=== PATIENT | male | born 1935 | race African-American/Black ===

== ENCOUNTER → 2020-12-11 09:37 | Outpatient (BNVA) | payer OTHER, SELFPAY | PROVIDERS: PCP Internal Medicine; Visit Provider Urology ==

== ENCOUNTER 2022-06-12 14:44 | Outpatient (AMB) | payer OTHER, SELFPAY ==
--- NOTE | 2022-06-11 16:23 | MHC.OFFVIS ---
Intake Intake Visit Reasons: 6 month follow up PSA (set) Intake Note: Patient is present for Tele PSA Follow Up Patient has catheter patient states that he manages his own catheter Blood Thinners: not on any Automation Controls Specialist Required: No Accompanied by: Self / Same As Patient Allergies No Known Allergies [No Known Allergies*] Allergy (Verified 06/17/23 09:31) HPI HPI Comments History of Present Illness Details Ry URBINA is a very pleasant male. He is a patient of Dr Waters. He is seen for the following urologic conditions. 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 Incontinence secondary to radiation. 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 On cysto had narrowing of anastomosis - blanched tissue with post radiation changes. No definitive stricture. Will try 14 days of doxycycline 05/08 recent UTI. On examination today urine is clear. Using condom catheter. Uses Vaseline to make sure that glue does not spread on inner thighs. Need to check PSA at next visit. He has a typical symptoms with lower abdominal discomfort when he gets a UTI. 02/06 possible UTI. Tells me it has resolved. No fever. Does have some dysuria. Still wearing [place] catheter changing this every day. 05/09 completed antibiotics for UTI. Cystoscopy showed anastomosis poorly vascular so has partial stricture. 06/09 urine symptoms currently stable. Main issue currently is abdominal discomfort. CT imaging suggests chronic pancreatitis. Has cysts in liver, pancreas, kidneys. These were discussed with patient. Can review in 6 months [facility] Medical History Stress incontinence, male Hyperlipidemia Recurrent UTI Dysuria Genital warts Prostate cancer Urgency incontinence Surgical History History of surgery Review of Systems Const Denies chills and Denies fever(s) Card Reports no additional complaints and Denies syncope Resp Denies cough GI Denies abdominal pain and Denies heartburn Reports as per HPI and Denies change in libido Neuro Denies syncope Psych Denies change in libido Endo Denies change in libido Physical Exam Const General: cooperative, healthy appearing, comfortable and no acute distress Orientation/consciousness: patient oriented x3 HEENT Face and sinus: Yes normal facial exam Mouth: moist mucous membranes Neck Neck: Yes normal visual inspection, Yes full ROM and Yes trachea midline Chest Chest palpation & inspection: normal inspection of the chest Resp Effort & Inspection: normal respiratory effort, able to speak in complete sentences and no respiratory distress GI Inspection: Yes normal to inspection Back/Spine/Pelvis Cervical Spine: normal cervical lordosis Thoracic/Lumbar Spine: thoracic and lumbar spine normal to inspection Skin General skin exam: no rashes or lesions noted Neuro General: patient oriented x3, gait normal, tone normal and moves all extremities Extrem General: Yes normal to inspection and Yes capillary refill normal Assessment & Plan Assessment & Plan (1) Prostate cancer: Code(s): C61 - Malignant neoplasm of prostate (2) Balanitis: Code(s): N48.1 - Balanitis Plan Six-month follow-up Orders: Orders Prostate Specific Antigen 6 Months C61 - Malignant neoplasm of prostate Patient Instructions: Imaging studies, laboratory and physical exam results were discussed and reviewed in detail. No major barriers to patient understanding were identified. An opportunity to ask questions regarding the treatment plan was provided. All questions were answered. The patient expressed understanding and agreement with the above treatment plan. The patient is aware they should contact our office by phone for worsening of their current condition or the appearance of new urologic symptoms. Compliance is encouraged with any medications and followup testing that is ordered. It is a privilege to participate in the urologic care of your patient. If you have any questions or concerns regarding treatment for the above conditions, or other urologic issues, please do not hesitate to contact me. The office telephone contact is [phone]. This note is constructed using voice recognition software. While every effort has been made to ensure accuracy senior controls engineer errors may have been included. Yours sincerely, Dr Anshul Bella MD, [place] [facility] - Urology Providers of Expert, Compassionate Care for the Genitourinary System Coding Level of Care Code Est Pt Level 3 (64357) Diagnoses Prostate cancer C61 Balanitis N48.1
== END 2022-06-12 15:21 | disposition home or self-care (01) ==
LOC: HO.HUSH 14:44
PROVIDERS: Visit Provider Urology
DX: C61 Malignant neoplasm of prostate (principal); N48.1 Balanitis
CPT/HCPCS: 99213; 99499

== ENCOUNTER → 2022-12-17 09:28 | Outpatient (BNVA) | payer MEDICARE, SELFPAY | PROVIDERS: Visit Provider Urology | DX: N48.1 Balanitis (principal) | CPT/HCPCS: 99212 ==

== ENCOUNTER 2023-06-17 09:11 | Outpatient (AMB) | payer MEDICARE, SELFPAY ==
--- NOTE | 2023-06-17 09:13 | MHC.OFFVIS ---
Intake Intake Visit Reasons: 6m follow up Intake Note: Patient is present for Follow up Urology Medications: None Antibiotic Allergy: None Blood Thinner: none Health Lead Required: No Accompanied by: Self / Same As Patient Allergies No Known Allergies [No Known Allergies*] Allergy (Verified 06/17/23 09:31) HPI HPI Comments History of Present Illness Details Ry URBINA is a very pleasant male. He is a patient of Dr Waters. He is seen for the following urologic conditions. 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 Incontinence secondary to radiation. 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 On cysto had narrowing of anastomosis - blanched tissue with post radiation changes. No definitive stricture. Will try 14 days of doxycycline 05/08 recent UTI. On examination today urine is clear. Using condom catheter. Uses Vaseline to make sure that glue does not spread on inner thighs. Need to check PSA at next visit. He has a typical symptoms with lower abdominal discomfort when he gets a UTI. 02/06 possible UTI. Tells me it has resolved. No fever. Does have some dysuria. Still wearing [place] catheter changing this every day. 05/09 completed antibiotics for UTI. Cystoscopy showed anastomosis poorly vascular so has partial stricture. 06/09 urine symptoms currently stable. Main issue currently is abdominal discomfort. CT imaging suggests chronic pancreatitis. Has cysts in liver, pancreas, kidneys. These were discussed with patient. Can review in 6 months [facility] Medical History Stress incontinence, male Hyperlipidemia Recurrent UTI Dysuria Genital warts Prostate cancer Urgency incontinence Surgical History History of surgery Review of Systems Const Denies chills and Denies fever(s) Card Reports no additional complaints and Denies syncope Resp Denies cough GI Denies abdominal pain and Denies heartburn Reports as per HPI and Denies change in libido Neuro Denies syncope Psych Denies change in libido Endo Denies change in libido Physical Exam Const General: cooperative, healthy appearing, comfortable and no acute distress Orientation/consciousness: patient oriented x3 HEENT Face and sinus: Yes normal facial exam Mouth: moist mucous membranes Neck Neck: Yes normal visual inspection, Yes full ROM and Yes trachea midline Chest Chest palpation & inspection: normal inspection of the chest Resp Effort & Inspection: normal respiratory effort, able to speak in complete sentences and no respiratory distress GI Inspection: Yes normal to inspection Back/Spine/Pelvis Cervical Spine: normal cervical lordosis Thoracic/Lumbar Spine: thoracic and lumbar spine normal to inspection Skin General skin exam: no rashes or lesions noted Neuro General: patient oriented x3, gait normal, tone normal and moves all extremities Extrem General: Yes normal to inspection and Yes capillary refill normal Assessment & Plan Assessment & Plan (1) Urgency incontinence: Code(s): N39.41 - Urge incontinence (2) Prostate cancer: Code(s): C61 - Malignant neoplasm of prostate Plan Urinary incontinence Stabilizes with condom cath Patient Instructions: Imaging studies, laboratory and physical exam results were discussed and reviewed in detail. No major barriers to patient understanding were identified. An opportunity to ask questions regarding the treatment plan was provided. All questions were answered. The patient expressed understanding and agreement with the above treatment plan. The patient is aware they should contact our office by phone for worsening of their current condition or the appearance of new urologic symptoms. Compliance is encouraged with any medications and followup testing that is ordered. It is a privilege to participate in the urologic care of your patient. If you have any questions or concerns regarding treatment for the above conditions, or other urologic issues, please do not hesitate to contact me. The office telephone contact is [phone]. This note is constructed using voice recognition software. While every effort has been made to ensure accuracy day trader errors may have been included. Yours sincerely, Dr Anshul Bella MD, [place] [facility] - Urology Providers of Expert, Compassionate Care for the Genitourinary System Coding Level of Care Code Est Pt Level 3 (51517) Diagnoses Urgency incontinence N39.41 Prostate cancer C61
== END 2023-06-17 09:55 | disposition home or self-care (01) ==
PROVIDERS: Visit Provider Urology
DX: N39.41 Urge incontinence (principal); C61 Malignant neoplasm of prostate
CPT/HCPCS: 99213

== ENCOUNTER → 2023-06-17 09:11 | Outpatient (BNVA) | payer MEDICARE, SELFPAY | PROVIDERS: Visit Provider Urology | DX: N39.41 Urge incontinence (principal); C61 Malignant neoplasm of prostate | CPT/HCPCS: 99212 ==

== ENCOUNTER 2023-11-30 10:45 | Outpatient (AMB) | payer MEDICARE, SELFPAY ==
--- NOTE | 2023-11-30 10:54 | A.OFFVIS_ITS ---
Intake Intake Visit Reasons: 6M PVR (Confirmed) Intake Note: Patient presents today for a 6 month follow-up/PVR Meds- None Allergies to Antibiotic- No Known Allergies Blood Thinner- None Post Void Residual: 0ml Hand Candle Molder Required: No Accompanied by: Self / Same As Patient Allergies No Known Allergies [No Known Allergies*] Allergy (Verified 11/30/23 11:05) Medication List - Last Reconciled 11/30/23 by Anshul Bella MD amlodipine 5 mg PO DAILY drainage bag As directed urinary bag (Urinary Leg Bag) As directed HPI HPI Comments History of Present Illness Details Ry URBINA is a very pleasant male. He is a patient of Dr Waters. He is seen for the following urologic conditions. - prostate cancer - urinary incontinence secondary to radi deirdre prostatectomy with external beam radiation for rising PSA Doing well Check PSA in 6 months Has irritation from condom catheter Did discuss using dribble clamp Said they were considering dialysis. Discussion at 89 would consider maybe peritoneal dialysis but hemodialysis is likely to be physically taxing. 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 Incontinence secondary to radiation. 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 On cysto had narrowing of anastomosis - blanched tissue with post radiation changes. No definitive stricture. Will try 14 days of doxycycline 05/08 recent UTI. On examination today urine is clear. Using condom catheter. Uses Vaseline to make sure that glue does not spread on inner thighs. Need to check PSA at next visit. He has a typical symptoms with lower abdominal discomfort when he gets a UTI. 02/06 possible UTI. Tells me it has resolved. No fever. Does have some dysuria. Still wearing [place] catheter changing this every day. 05/09 completed antibiotics for UTI. Cystoscopy showed anastomosis poorly vascular so has partial stricture. 06/09 urine symptoms currently stable. Main issue currently is abdominal discomfort. CT imaging suggests chronic pancreatitis. Has cysts in liver, pancreas, kidneys. These were discussed with patient. Can review in 6 months [facility] Medical History (Updated 11/30/23 @ 11:27 by Anshul Bella MD) Stress incontinence, male Hyperlipidemia Recurrent UTI Dysuria Genital warts Prostate cancer Urgency incontinence Surgical History History of surgery Review of Systems Const Denies chills and Denies fever(s) Card Reports no additional complaints and Denies syncope Resp Denies cough GI Denies abdominal pain and Denies heartburn Reports as per HPI and Denies change in libido Neuro Denies syncope Psych Denies change in libido Endo Denies change in libido Physical Exam Const General: cooperative, healthy appearing, comfortable and no acute distress Orientation/consciousness: patient oriented x3 HEENT Face and sinus: Yes normal facial exam Mouth: moist mucous membranes Neck Neck: Yes normal visual inspection, Yes full ROM and Yes trachea midline Chest Chest palpation & inspection: normal inspection of the chest Resp Effort & Inspection: normal respiratory effort, able to speak in complete sentences and no respiratory distress GI Inspection: Yes normal to inspection Back/Spine/Pelvis Cervical Spine: normal cervical lordosis Thoracic/Lumbar Spine: thoracic and lumbar spine normal to inspection Skin General skin exam: no rashes or lesions noted Neuro General: patient oriented x3, gait normal, tone normal and moves all extremities Extrem General: Yes normal to inspection and Yes capillary refill normal Office Procedures Post Void Residual Post Residual Void Post Void Residual (PVR): 0 [id number]-[id number] Void Residual by ultrasound Assessment & Plan Assessment & Plan (1) Prostate cancer: Code(s): C61 - Malignant neoplasm of prostate (2) Stress incontinence, male: Code(s): N39.3 - Stress incontinence (female) (male) Plan Six-month PSA Orders: Orders Prostate Specific Antigen 11/17/23 C61 - Malignant neoplasm of prostate AMB Post Void Residual by ultrasound Today R33.9 - Retention of urine, unspecified Prostate Specific Antigen 6 Months C61 - Malignant neoplasm of prostate Patient Instructions: Imaging studies, laboratory and physical exam results were discussed and reviewed in detail. No major barriers to patient understanding were identified. An opportunity to ask questions regarding the treatment plan was provided. All questions were answered. The patient expressed understanding and agreement with the above treatment plan. The patient is aware they should contact our office by phone for worsening of their current condition or the appearance of new urologic symptoms. Compliance is encouraged with any medications and followup testing that is ordered. It is a privilege to participate in the urologic care of your patient. If you have any questions or concerns regarding treatment for the above conditions, or other urologic issues, please do not hesitate to contact me. The office telephone contact is [phone]. This note is constructed using voice recognition software. While every effort has been made to ensure accuracy door liner helper errors may have been included. Yours sincerely, Dr Anshul Bella MD, [place] [facility] - Urology Providers of Expert, Compassionate Care for the Genitourinary System Coding Level of Care Code Est Pt Level 3 (43889) Diagnoses Prostate cancer C61 Stress incontinence, male N39.3 CPT Codes Post Residual Void - PVR CPT Code: 68768-Xijx Void Residual by ultrasound ([id number])
== END 2023-11-30 11:26 | disposition home or self-care (01) ==
LOC: HO.HUSH 10:46
PROVIDERS: Visit Provider Urology
DX: C61 Malignant neoplasm of prostate (principal); N39.3 Stress incontinence (female) (male)
CPT/HCPCS: 99213

== ENCOUNTER → 2023-11-30 10:45 | Outpatient (BNVA) | payer MEDICARE, SELFPAY | PROVIDERS: Visit Provider Urology | DX: C61 Malignant neoplasm of prostate (principal); N39.3 Stress incontinence (female) (male) | CPT/HCPCS: 51798; 99212 ==

== ENCOUNTER → 2024-01-21 09:05 | Outpatient (BNVA) | payer MEDICARE, SELFPAY | PROVIDERS: Visit Provider Urology | DX: N39.3 Stress incontinence (female) (male) (principal) | CPT/HCPCS: 51702 ==

== ENCOUNTER → 2024-02-01 13:37 | Outpatient (BNVA) | payer MEDICARE, SELFPAY | PROVIDERS: Visit Provider Urology ==

== ENCOUNTER 2024-06-01 10:39 | Outpatient (AMB) | payer MEDICARE, SELFPAY ==
--- NOTE | 2024-06-01 10:47 | A.OFFVIS_ITS ---
Intake Visit Reasons: Concerning Rash Intake Note: Patient is present for Concerning recurrent Groin Rash. Patient states that he has had this issue for a while and symptoms has returned. Currently patient has not done his Current PSA but [facility] Order has been given to patient Urology Med: Oxybutynin Supervisor Drawing Required: No Accompanied by: Self / Same As Patient Allergies No Known Allergies [No Known Allergies*] Allergy (Verified 06/01/24 11:00) HPI Comments Details: Ry URBINA is a very pleasant male. He is a patient of Dr Waters. He is seen for the following urologic conditions. 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 Incontinence secondary to radiation. 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 On cysto had narrowing of anastomosis - blanched tissue with post radiation changes. No definitive stricture. Will try 14 days of doxycycline 05/08 recent UTI. On examination today urine is clear. Using condom catheter. Uses Vaseline to make sure that glue does not spread on inner thighs. Need to check PSA at next visit. He has a typical symptoms with lower abdominal discomfort when he gets a UTI. 02/06 possible UTI. Tells me it has resolved. No fever. Does have some dysuria. Still wearing [place] catheter changing this every day. 05/09 completed antibiotics for UTI. Cystoscopy showed anastomosis poorly vascular so has partial stricture. 06/09 urine symptoms currently stable. Main issue currently is abdominal discomfort. CT imaging suggests chronic pancreatitis. Has cysts in liver, pancreas, kidneys. These were discussed with patient. Can review in 6 months [facility] Medical History Stress incontinence, male Hyperlipidemia Recurrent UTI Dysuria Genital warts Prostate cancer Urgency incontinence Surgical History History of surgery Review of Systems Const Denies chills and Denies fever(s) Card Reports no additional complaints and Denies syncope Resp Denies cough GI Denies abdominal pain and Denies heartburn Reports as per HPI and Denies change in libido Neuro Denies syncope Psych Denies change in libido Endo Denies change in libido Physical Exam Const General: cooperative, healthy appearing, comfortable and no acute distress Orientation/consciousness: patient oriented x3 HEENT Face and sinus: Yes normal facial exam Mouth: moist mucous membranes Neck Neck: Yes normal visual inspection, Yes full ROM and Yes trachea midline Chest Chest palpation & inspection: normal inspection of the chest Resp Effort & Inspection: normal respiratory effort, able to speak in complete sentences and no respiratory distress GI Inspection: Yes normal to inspection Back/Spine/Pelvis Cervical Spine: normal cervical lordosis Thoracic/Lumbar Spine: thoracic and lumbar spine normal to inspection Skin General skin exam: no rashes or lesions noted Neuro General: patient oriented x3, gait normal, tone normal and moves all extremities Extrem General: Yes normal to inspection and Yes capillary refill normal Assessment & Plan Assessment & Plan (1) Prostate cancer: Code(s): C61 - Malignant neoplasm of prostate Category: Medical (2) Stress incontinence, male: Code(s): N39.3 - Stress incontinence (female) (male) Category: Medical (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 These include but are not limited to infection, bleeding, damage to local organs and tissues, need for further interventions. Anesthetic risks regarding cardiac arrhythmia, blood clots, and potential mortality were discussed. The patient understands the typical recovery time and the outpatient nature of the procedure. After consideration of these risks the patient gives full informed consent and they wish to move ahead with the procedure. Circumcision Patient Instructions: Imaging studies, laboratory and physical exam results were discussed and reviewed in detail. No major barriers to patient understanding were identified. An opportunity to ask questions regarding the treatment plan was provided. All questions were answered. The patient expressed understanding and agreement with the above treatment plan. The patient is aware they should contact our office by phone for worsening of their current condition or the appearance of new urologic symptoms. Compliance is encouraged with any medications and followup testing that is ordered. It is a privilege to participate in the urologic care of your patient. If you have any questions or concerns regarding treatment for the above conditions, or other urologic issues, please do not hesitate to contact me. The office telephone contact is [phone]. This note is constructed using voice recognition software. While every effort has been made to ensure accuracy painting department supervisor errors may have been included. Yours sincerely, Dr Anshul Bella MD, [place] [facility] - Urology Providers of Expert, Compassionate Care for the Genitourinary System Coding Level of Care Code Est Pt Level 4 (37903) Diagnoses Prostate cancer C61 Stress incontinence, male N39.3 Lichen sclerosus of penis N48.0
== END 2024-06-01 11:16 | disposition home or self-care (01) ==
PROVIDERS: Visit Provider Urology
DX: C61 Malignant neoplasm of prostate (principal); N39.3 Stress incontinence (female) (male); N48.0 Leukoplakia of penis
CPT/HCPCS: 99214

== ENCOUNTER → 2024-06-01 10:39 | Outpatient (BNVA) | payer MEDICARE, SELFPAY | PROVIDERS: Visit Provider Urology | DX: N39.3 Stress incontinence (female) (male) (principal); N48.0 Leukoplakia of penis; C61 Malignant neoplasm of prostate | CPT/HCPCS: 99212 ==

== ENCOUNTER → 2024-06-20 10:06 | Day surgery (SDC) | payer MEDICARE, SELFPAY ==
--- NOTE | 2024-06-19 12:48 | HO.ANESPROP2 ---
HPI - Anesthesia Eval Consult details Narrative: 89yo M for Circumcision Hx PAF, no OAC 2/2 anemia. Bilat LE edema - follows [facility] no [facility] recent labs, EKG - will obtain DOS PMFSH Active Problems Active Problems: All Active Problems Lichen sclerosus of penis (Acute) Balanitis (Acute) Stress incontinence, male (Acute) Urgency incontinence (Acute) Prostate cancer (Acute) Past Medical History Medical History (Updated 06/16/24 @ 12:11 by Yudith Stacy RN) Neuralgia Microalbuminuria Osteoarthritis HTN (hypertension) Back pain Hx of testicular cancer Obesity Vitamin D deficiency Mixed hyperlipidemia Sensorineural hearing loss Solitary lung nodule Lesion of liver IBS (irritable bowel syndrome) Rib fractures Gynecomastia Sleep apnea Chronic pancreatitis Anemia Atrial fibrillation Stress incontinence, male Hyperlipidemia Recurrent UTI Dysuria Genital warts Prostate cancer Urgency incontinence Surgical History Surgical History (Updated 06/16/24 @ 12:11 by Yudith Stacy RN) H/O colonoscopy History of orchiectomy Hx of radical prostatectomy History of surgery Meds Allergies Allergy/AdvReac Type Severity Reaction Status Date / Time No Known Allergies Allergy Verified 06/01/24 11:00 [No Known Allergies*] Home Medications ?Medication ?Instructions ?Recorded ?Confirmed ?Last Taken ?Type amlodipine 10 mg tablet 10 mg PO DAILY 06/16/24 06/16/24 Unknown History aspirin 81 mg tablet,delayed 81 mg PO DAILY 06/16/24 06/16/24 Unknown History release calcitriol 0.25 mcg capsule 0.25 mcg PO DAILY 06/16/24 06/16/24 Unknown History metoprolol tartrate 25 mg tablet 25 mg PO BID 06/16/24 06/16/24 Unknown History sodium bicarbonate 650 mg tablet 650 mg PO BID 06/16/24 06/16/24 Unknown History Exam Height,Weight and Vital Signs: Weight 92.986 kg Assessment and Plan Assessment Anesthesia Assessment: Chart Reviewed
--- NOTE | 2024-06-20 10:35 | ECG_ITS ---
Test Reason : PREOP Blood Pressure : / mmHG Vent. Rate : 065 BPM Atrial Rate : 065 BPM P-R Int : 158 ms QRS Dur : 088 ms QT Int : 394 ms P-R-T Axes : 052 006 081 degrees QTc Int : 409 ms Sinus rhythm with Premature atrial complexes Otherwise normal ECG No previous ECGs available Referred By: Georgia Dumont Electronically Signed By:STACEY DENNIS
[2024-06-20] MEDS: Lactated Ringers 1,000 ML 100 ML IVCONT (11:12)
[2024-06-20 11:24] LABS: Hematocrit 23.9 % (42.0-52.0); Hemoglobin 7.4 g/dl (14.0-18.0); Mean Corpuscular Hemoglobin 34.9 pg (27.0-33.0); Mean Corpuscular Volume 112.7 fL (80.0-98.0); Mean Platelet Volume 10.4 fL (9.4-12.4); Platelet Count 205 X10*3/uL (160-400); Red Blood Count 2.12 X10*6/uL (4.60-5.80); Red Cell Distribution Width 14.6 % (11.0-16.0); White Blood Count 4.7 X10*3/uL (4.8-10.8)
[2024-06-20 11:36] VITALS: BP 138/87; PULSE 69; RESP 18; TEMP 36.7; O2SAT 100
[2024-06-20 11:36] LABS: Anion Gap 12 (12-20); Blood Urea Nitrogen 36 mg/dL (9-16); Calcium 8.3 mg/dL (8.4-10.2); Carbon Dioxide 12 mmol/L (22-29); Chloride 121 mmol/L (96-108); Estimated Glomerular Filt Rate 12; Glucose Fasting 97 mg/dL (60-99); Potassium 6.6 mmol/L (3.3-5.1); Sodium 138 mmol/L (135-145)
[2024-06-20 11:39] VITALS: BMI 29.6
--- NOTE | 2024-06-20 12:22 | PC.NURSE ---
Dr. Romero and Dr. Tariq reviewed labs and decision was made that patient was to be brought to ER. Report given to Angella Ugalde RN. Doctor met patient in room when arrived. Dr. Tariq is calling patient's daughter.
--- NOTE | 2024-06-20 12:36 | MHC.SHP ---
Pre-Procedural Eval Section A - 24 Hr Update-Section A only Date of Service: 06/20/24 The patient is an INPATIENT: No The patient has been examined within 24 hours of the surgical procedure. The History & Physical has been completed within 30 days and I have reviewed it.: Yes Section B - Complete if H&P > 30 days Chief Complaint: Leukoplakia of penis Allergies: Allergies Allergy/AdvReac Type Severity Reaction Status Date / Time No Known Allergies Allergy Verified 06/20/24 12:23 [No Known Allergies*] Plan Diagnosis/Plan: Change I have reviewed the history and physical and performed a pertinent physical examination on my patient. No changes have occurred unless specified. Labs drawn in pre-op --K+-6.6, creatinine elevated. Procedure. Cancelled. The patient will be sent to ED for further evaluation. The patient's daughter Ceferino was informed. Time Spent With Patient Time: Total time managing care of this patient today ____ minutes.
[2024-06-20 12:57] LABS: Alanine Aminotransferase 17 U/L (0-40); Albumin Level 3.6 g/dL (3.5-5.0); Alkaline Phosphatase 128 U/L (39-117); Aspartate Amino Transferase 14 U/L (5-37); Bilirubin Direct 0.1 mg/dL (0.0-0.5); Bilirubin Total 0.3 mg/dL (0.0-1.0); Lipase 15 U/L (8-78); Total Protein 6.4 g/dL (6.5-8.0)
== END ==
PROVIDERS: Nurse Practitioner; Visit Provider Urology
DX: N48.0 Leukoplakia of penis (principal); Z53.8 Procedure and treatment not carried out for other reasons
CPT/HCPCS: 36415; 80048; 80076; 83690; 85027; 93005; J0690

== ENCOUNTER 2024-06-20 12:17 | Inpatient (IN) | payer OTHER, MEDICARE, SELFPAY ==
--- NOTE | ~2024-06-20 | XR_ITS ---
EXAMINATION: XR CHEST CLINICAL INFORMATION: Acute kidney injury COMPARISON: None available. TECHNIQUE: Frontal view of the chest was obtained. FINDINGS: The left hemidiaphragm is elevated. Heart size normal allowing for technique. No infiltrates, XR/XR chest 1V IMPRESSION: No acute intrathoracic disease. Electronically signed by: Ziggy White MD 06/20/2024 03:14 PM EDT RP
--- NOTE | ~2024-06-20 | CT_ITS ---
EXAMINATION: CT ABDOMEN AND PELVIS WITHOUT CONTRAST CLINICAL INFORMATION: Left hip pain with question of obstructive uropathy COMPARISON: CT abdomen pelvis 05/07/2020 TECHNIQUE: Multidetector volumetric imaging was performed from the superior aspect of the liver through the pubic symphysis. Sagittal and coronal reformatted images were obtained on the technologist's workstation. This CT examination was performed using dose optimization techniques as appropriate, variously including the following: *Automated exposure control *Adjustment of mA and/or kV according to patient size (this includes techniques or standardized protocols for targeted exams where dose is matched to indication/reason for exam; i.e. extremities or head) *Use of iterative reconstruction technique DLP: 626 mGy-cm FINDINGS: LUNG BASES: Left hemidiaphragm is mildly elevated with some left basilar scarring. Some mild traction bronchiectasis is seen at the right lung base. No consolidations, effusions or suspicious masses. LIVER, GALLBLADDER, AND BILIARY TREE: The liver is small in size with normal shape and attenuation. Innumerable hepatic cysts are present. No focal hepatic lesion or biliary ductal dilatation is present. The gallbladder is contracted but otherwise unremarkable with no evidence of radiopaque gallstones, gallbladder wall thickening, or obvious pericholecystic inflammatory changes. PANCREAS: Chronic calcifications are seen throughout the pancreas with large confluent areas of calcification in the pancreatic head. No inflammatory changes are seen around the pancreas to suggest acute pancreatitis. SPLEEN: Unremarkable. ADRENAL GLANDS: Mild left adrenal thickening. No discrete adrenal masses KIDNEYS AND URETERS: The kidneys are small, the right smaller than the left. Bilateral benign Bosniak class I renal cysts are noted which require no additional imaging or follow-up. No solid renal masses are seen. There is no nephrolithiasis. No hydronephrosis. BLADDER: A Valentine catheter is present in the bladder which is decompressed. GASTROINTESTINAL TRACT: The small and large bowel are unremarkable. The appendix is unremarkable. ABDOMINAL WALL: No significant hernia is appreciated. LYMPH NODES: No retroperitoneal lymphadenopathy. VASCULAR: Calcific atherosclerotic changes are present in the aorta and iliofemoral vessels. There is no evidence of an abdominal aortic aneurysm. PELVIC VISCERA: Prostate and seminal vesicles not seen. Please correlate with any surgical history OSSEOUS STRUCTURES: Marked degenerative changes are present in the hips. Moderate degenerative changes are present in the spine. Minimal grade 1 anterolisthesis of L4 upon L5 CT/CT abdomen pelvis wo IV con IMPRESSION: 1. Severe arthritic changes are present in the hips, left greater than right. This could certainly be a cause of left hip pain. 2. Innumerable benign hepatic cysts. 3. Chronic calcifications in the pancreas. 4. Small kidneys with benign Bosniak class I renal cysts which need no additional imaging or follow-up. 5. Other incidental findings as described above. Fleischner guidelines were followed. Electronically signed by: Ziggy White MD 06/20/2024 04:19 PM EDT
[2024-06-20 12:22] VITALS: BP 161/80; PULSE 69; RESP 18; TEMP 36.8; O2SAT 99; BMI 31.0
--- NOTE | 2024-06-20 12:27 | ECG_ITS ---
Test Reason : hyperkalemia Blood Pressure : / mmHG Vent. Rate : 068 BPM Atrial Rate : 068 BPM P-R Int : 178 ms QRS Dur : 078 ms QT Int : 386 ms P-R-T Axes : 063 002 076 degrees QTc Int : 410 ms Sinus rhythm with Premature atrial complexes Low voltage QRS Borderline ECG When compared with ECG of 20-JUN-2024 10:49, No significant change was found Referred By: Rey Dumont Electronically Signed By:STACEY DENNIS
--- NOTE | 2024-06-20 12:28 | ED_ITS ---
HPI - General Adult General Chief complaint: Recheck/Abnormal Lab/Rx Stated complaint: abnormal labs Time Seen by Provider: 06/20/24 12:23 Source: patient Mode of arrival: ambulatory Limitations: no limitations History of Present Illness ED Provider: DR. Dumont HPI narrative: Mr. 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 Patient otherwise complaining of feeling generalized weakness but no specific symptoms stated by the patient today, stated that he use diaper at home in he is urinating normally. no abdominal pain or suprapubic distention. Related Data Home Medications ?Medication ?Instructions ?Recorded ?Confirmed amlodipine 10 mg tablet 10 mg PO DAILY 06/16/24 06/16/24 aspirin 81 mg tablet,delayed 81 mg PO DAILY 06/16/24 06/16/24 release calcitriol 0.25 mcg capsule 0.25 mcg PO DAILY 06/16/24 06/16/24 metoprolol tartrate 25 mg tablet 25 mg PO BID 06/16/24 06/16/24 sodium bicarbonate 650 mg tablet 650 mg PO BID 06/16/24 06/16/24 Previous Rx's ?Medication ?Instructions ?Recorded drainage bag #1 ea 03/09/23 urinary bag (Urinary Leg Bag) #2 ea 03/09/23 phenazopyridine 100 mg tablet 100 mg PO TID PRN pain 3 days #9 01/21/24 (Pyridium) tabs oxybutynin chloride 5 mg tablet 5 mg PO DAILY bladder spasms 30 01/25/24 days #30 tabs Allergies Allergy/AdvReac Type Severity Reaction Status Date / Time No Known Allergies Allergy Verified 06/20/24 12:23 [No Known Allergies*] Review of Systems Review of Systems: All other systems are reviewed and are negative Constitutional: Reports as per HPI and Reports no additional constitutional complaints Eyes: Reports as per HPI and Reports no additional eye complaints Reports system reviewed and no additional complaints, except as documented Cardiovascular: Reports as per HPI and Reports no additional cardiovascular complaints Respiratory: Reports as per HPI and Reports no additional respiratory complaints Gastrointestinal: Reports as per HPI and Reports no additional gastrointestinal complaints Genitourinary: Reports no additional female genitourinary complaints Musculoskeletal: Reports no additional musculoskeletal complaints Skin/Breast: Reports system reviewed and no additional complaints, except as docu Psychiatric: Reports no additional psychiatric complaints Endocrine: Reports no additional endocrine complaints Hematologic/Lymphatic: Reports no additional hematologic/lymphatic complaints Allergic/Immunologic: Reports no additional allergic/immunologic complaints Reports system reviewed and no additional complaints, except as documented and Reports Abnormal speech present [facility] Past Medical History Medical History Neuralgia Microalbuminuria Osteoarthritis HTN (hypertension) Back pain Hx of testicular cancer Obesity Vitamin D deficiency Mixed hyperlipidemia Sensorineural hearing loss Solitary lung nodule Lesion of liver IBS (irritable bowel syndrome) Rib fractures Gynecomastia Sleep apnea Chronic pancreatitis Anemia Atrial fibrillation Stress incontinence, male Hyperlipidemia Recurrent UTI Dysuria Genital warts Prostate cancer Urgency incontinence Surgical History H/O colonoscopy History of orchiectomy Hx of radical prostatectomy History of surgery Social History Social History Advance Directives: Yes Advance Directives Information Provided: Yes Advance Directives on File: No Do you have a plan to hurt others: No Plan Physical Exam ED Vital Signs: Vital Signs - 24 hr 06/20/24 12:22 Temperature 98.3 F Pulse Rate 69 Respiratory Rate 18 Blood Pressure 161/80 H Pulse Oximetry 99 Oxygen Delivery Method Room Air BMI result Body Mass Index 31.0 Vital signs have been reviewed and appear to be correct. Blood pressure elevated. Heart rate normal. Respiratory rate normal. Temperature normal. Oxygen saturation normal. Appearance: Alert. Oriented X3. No acute distress. Head: Normal external exam. Normocephalic. Atraumatic. No Baeza signs noted. No raccoon eyes noted Eyes: PERRLA. EOMI. Conjunctiva and sclera normal. Eyelids normal. ENT: TM's Normal. Pharynx normal. Uvula midline. Moist mucous membranes. No trismus noted. No drooling noted. No muffled voice noted. Neck: Normal inspection. Neck supple. FROM. No adenopathy. Thyroid Normal. No meningeal signs. No neck mass noted. CVS: Normal heart rate and rhythm. Heart sound normal. No murmurs noted. Pulses normal throughout. Respiratory: No respiratory distress. Painless inspiration. Breath sounds normal. No wheezes/rales/rhonchi noted. Chest nontender. No accessory muscle usage noted or decreased air movement noted. Abdomen: Soft and nontender. Bowel sounds normal in all 4 quadrants. No distention noted. No organomegaly noted. No visible injury noted. Back: No CVA tenderness. Full range of motion noted. Skin: Skin warm and dry. Normal skin color. Normal skin turgor. No rashes/lesions/lacerations noted. Extremities: No lower extremity edema. Extremities exhibit normal range of mot ion. Extremities nontender. Neuro: Oriented X 3. Cranial nerve exam: II-XII are grossly intact No motor deficit. No sensory deficit. Reflexes normal. Course Reevaluation(s) Reevaluation #1: 1. ML, Valentine was placed with 100 cc of clear urine was drained, CT show no acute obstructive uropathy. 2. Admit and get inpatient nephrology consult. 3. Left hip pain CT is revealing severe arthritis left more than right. Time: 16:31 Medications Administered Discontinued Medications Generic Name Dose Route Start Last Admin Trade Name Freq PRN Reason Stop Dose Admin Lidocaine HCl 10 ml 06/20/24 12:51 06/20/24 13:20 Lidocaine Hcl 2 % Urojet 10 Ml Jel.Pf.Gio TOPICAL 06/20/24 12:52 10 ml ONCE ONE Administration Sodium Zirconium Cyclosilicate 10 gm 06/20/24 12:26 06/20/24 12:35 Sodium Zirconium Cyclosilicate 10 Gm Powd.Pack PO 06/20/24 12:27 10 gm ONCE ONE Administration Medical Decision Making Differential Diagnosis Differential Diagnoses: The differential diagnosis associated with the presentation includes ( ML on CKI, severe anemia, electrolyte derangement, hyperkalemia, EKG changes, intra abdominal pathology, obstructive uropathy.) Admission/Observation Consideration of admission/observation: Escalation of care including admission/observation considered Consult Healthcare Provider Management of the patient was discussed with: Hospitalist ( Dr. Larry) Lab Data MDM Lab Attestation statement: I reviewed the patient's lab results. Independent Interpretation I performed an independent interpretation of an: CT Scan ( abdomen pelvis:1. Severe arthritic changes are present in the hips, left greater than right. This could certainly be a cause of left hip pain. 2. Innumerable benign hepatic cysts. 3. Chronic calcifications in the pancreas. 4. Small kidneys with benign Bosniak class I renal cysts which need no ) Radiology Impression Discussion of test interpretation with radiology: I have reviewed the radiologist's reading. Discharge Plan Discharge Clinical Impression: ML (acute kidney injury), Acute hyperkalemia, Arthritis of left hip Patient Disposition: Admitted As Inpatient Print Language: Khmer
[2024-06-20] MEDS: Sodium Zirconium Cyclosilicate 10 GM POWD.PACK PO ×2 (12:35→22:07)
[2024-06-20] MEDS: Lidocaine HCl 2 % Urojet 10 ML JEL.PF.APP TOPICAL (13:20)
--- NOTE | 2024-06-20 16:21 | P.HPHOSP_ITS ---
History of Present Illness Date of Service: 06/20/24 Chief Complaint: abnormal labs 89-year-old man scheduled for circumcision due to lichen sclerosis. While in preop patient had lab work done which showed abnormalities including potassium of 6.6, creatinine 4.50. Abdominal CT not showing obstruction. He did have Valentine catheter placed in the ER. No chest pain, shortness breath, nausea, vomiting, diarrhea. Patient has a history of hyperkalemia and uses Lokelma at home he also has a history of CKD but he is elevated from baseline. Unfortunately, the procedure was canceled and it was requested that patient be admitted for further follow-up. Review of Systems 2 Review of Systems: Denies any recent fever chills or decrease in appetite respiratory denies any shortness of breath or cough cardiovascular denied chest pain gastrointestinal denies any dysphagia abdominal pain nausea vomiting or diarrhea genitourinary denies any dysuria frequency or hematuria musculoskeletal denies any joint pain or swelling neuropsych denies any weakness or seizures all other systems reviewed are negative [facility] Medical History Neuralgia Microalbuminuria Osteoarthritis HTN (hypertension) Back pain Hx of testicular cancer Obesity Vitamin D deficiency Mixed hyperlipidemia Sensorineural hearing loss Solitary lung nodule Lesion of liver IBS (irritable bowel syndrome) Rib fractures Gynecomastia Sleep apnea Chronic pancreatitis Anemia Atrial fibrillation Stress incontinence, male Hyperlipidemia Recurrent UTI Dysuria Genital warts Prostate cancer Urgency incontinence Pertinent family history: no medical problems Surgical History H/O colonoscopy History of orchiectomy Hx of radical prostatectomy History of surgery Social History Patient Tobacco Use Status: Never used Tobacco Smoked in Last 30 Days: No Use of substances other than those prescribed or required for medical reasons: No Advance Directives: Yes Advance Directives Information Provided: Yes Advance Directives on File: No Do you have a plan to hurt others: No Plan Nutrition Risks: No Nutritional Risk Meds Allergies Allergy/AdvReac Type Severity Reaction Status Date / Time No Known Allergies Allergy Verified 06/20/24 12:23 [No Known Allergies*] Home Medications ?Medication ?Instructions ?Recorded ?Confirmed ?Last Taken ?Type amlodipine 10 mg tablet 10 mg PO DAILY 06/16/24 06/16/24 Unknown History aspirin 81 mg tablet,delayed 81 mg PO DAILY 06/16/24 06/16/24 06/13/24 History release calcitriol 0.25 mcg capsule 0.25 mcg PO DAILY 06/16/24 06/16/24 Unknown History metoprolol tartrate 25 mg tablet 25 mg PO BID 06/16/24 06/16/24 06/20/24 History sodium bicarbonate 650 mg tablet 650 mg PO BID 06/16/24 06/16/24 Unknown History Physical Exam 2 Vital Signs and Narrative: Vital Signs: Last Vital Signs Temp 98.3 F 06/20/24 12:22 Pulse 69 06/20/24 12:22 Resp 18 06/20/24 12:22 BP 161/80 H 06/20/24 12:22 Pulse Ox 99 06/20/24 12:22 O2 Del Method Room Air 06/20/24 12:22 BMI result Body Mass Index 31.0 Results Labs 06/20/24 17:06 Imaging Radiologist's Impressions: Impressions Chest X-Ray 06/20/24 13:24 IMPRESSION: No acute intrathoracic disease. Electronically signed by: Ziggy White MD 06/20/2024 03:14 PM EDT RP Assessment and Plan (1) Acute hyperkalemia: Status: Acute (2) ML (acute kidney injury): Status: Acute Plan 89 year old man admitted with ML, hyperkalemia and Anemia found this morning in PACU. He was scheduled to have circumcision today but was cancelled due to labs. ML Possible secondary to dehydration, poor appetite recently no obstruction on abd ct IV fluids Valentine catheter Nephro consultation, sees Dr. Duran Hyperkalemia [facility] x1 Repeat BMP pending No ekg changes noted HTN continue home medications Anemia no active bleeding labs from [facility] 2022 show HH of 8.6/28.2 could be related to worsening renal function hold off on transfusion for now Follow HH Hx of afib on BB [facility] D[facility] not 100% sure why he is not on ac Chronic hip pain supportive care Medication reconciliation pending DVT prophylaxis with SCD boots secondary to anemia Full code Quality Stroke Does the patient have a stroke diagnosis?: No VTE Prior VTE?: No VTE Risk Level:: Medical - moderate - high VTE Device Contraindication: N/A - Device Ordered VTE Drug Contraindication: Treatment Not Indicated
[2024-06-20] MEDS: Lactated Ringers 1,000 ML 100 ML IVCONT (17:02)
[2024-06-20] MEDS: Sodium Bicarbonate 650 MG TABLET PO (17:11)
[2024-06-20 17:37] LABS: Anion Gap 12 (12-20); Blood Urea Nitrogen 36 mg/dL (9-16); Carbon Dioxide 13 mmol/L (22-29); Chloride 121 mmol/L (96-108); Creatinine Clr Calc Pharmacy 11.9; Estimated Glomerular Filt Rate 12; Glucose Random 145 mg/dL (60-115); Potassium 6.1 mmol/L (3.3-5.1); Sodium 140 mmol/L (135-145)
[2024-06-20 18:57] VITALS: BP 160/76; PULSE 76; RESP 15; TEMP 36.9; O2SAT 99
[2024-06-20] MEDS: Sodium Zirconium Cyclosilicate 5 GM POWD.PACK 15 GM PO (19:00)
--- NOTE | 2024-06-20 19:08 | PHA.MEDREC ---
Addendum entered by Maged Velasquez 06/20/24 19:36: reviewed Original Note: Pharmacy Consult ? Medication Reconciliation Pharmacy has completed the medication reconciliation. Spoke to patient to confirm med list . patient states he gets his medications [facility] [place]. Utilized list to confirm meds. Patient states he takes vitamin D2 50,000units once a week on Mondays, however last dose was more then a week ago. patient states he was told to stop taking Aspirin 81 mg for 1 week prior to his procedure, last dose was over a week ago,
--- NOTE | 2024-06-20 19:45 | PC.NURSE ---
this rn assumed care of this pt. vss, respirations even and unlabored. Valentine catheter noted to be in place.
--- NOTE | 2024-06-20 20:54 | PM.EVENT ---
Event Note Date of Service: 06/20/24 Event Note: 8:50 PM - Dr. Pool recommended tx with bicarb infusion instead of LR and to continue Lokelma. Time Spent With Patient Time: Total time managing care of this patient today ____ minutes.
--- NOTE | 2024-06-20 21:09 | PC.NURSE ---
per , d/c LR, pharmacy to bring up pt jamaal perez
[2024-06-20 21:48] LABS: Alanine Aminotransferase 16 U/L (0-40); Albumin Level 3.2 g/dL (3.5-5.0); Alkaline Phosphatase 115 U/L (39-117); Anion Gap 14 (12-20); Aspartate Amino Transferase 14 U/L (5-37); Bilirubin Total 0.2 mg/dL (0.0-1.0); Blood Urea Nitrogen 36 mg/dL (9-16); Calcium 7.6 mg/dL (8.4-10.2); Chloride 120 mmol/L (96-108); Creatinine Clr Calc Pharmacy 12.8; Estimated Glomerular Filt Rate 13; Glucose Random 91 mg/dL (60-115); Potassium 5.8 mmol/L (3.3-5.1); Sodium 138 mmol/L (135-145); Total Protein 5.7 g/dL (6.5-8.0)
[2024-06-20] MEDS: Sodium Bicarbonate 8.4% 100 MEQ in Dextrose 5 % 900 ML IV (22:07)
[2024-06-20 23:06] VITALS: BP 136/69; PULSE 76; RESP 13; TEMP 37.2; O2SAT 99
[2024-06-21] VITALS (9 sets, daily range): BP systolic 117–146; BP diastolic 47–76; PULSE 60–93; RESP 13–23; TEMP 36.2–37.1; O2SAT 95–100; BMI 31.0
[2024-06-21 01:57] LABS: Venous Blood Gas Refer to POC result
[2024-06-21 02:02] LABS: VBG Base Excess -11.5 mmol/L; VBG HCO3 12 mmol/L (22-26); VBG pCO2 22 mmHg; VBG pH 7.35 (7.32-7.43); VBG pO2 143 mmHg
[2024-06-21 02:05] LABS: Hematocrit 21.4 % (42.0-52.0); Immature Retic Fraction 16.1 % (2.3-13.4); Mean Corpuscular HGB Conc 31.3 g/dl (31.0-36.0); Mean Corpuscular Hemoglobin 34.4 pg (27.0-33.0); Mean Corpuscular Volume 109.7 fL (80.0-98.0); Mean Platelet Volume 10.3 fL (9.4-12.4); Platelet Count 179 X10*3/uL (160-400); Red Blood Count 1.95 X10*6/uL (4.60-5.80); Red Cell Distribution Width 14.8 % (11.0-16.0); Retic HGB Equivalent 31.9 pg (30.0-35.0); Reticulocyte Percent 1.9 % (0.5-1.8); Reticulocytes Absolute 0.037 X10*6/uL (0.026-0.095); White Blood Count 5.7 X10*3/uL (4.8-10.8)
[2024-06-21 02:10] LABS: Hemoglobin 6.7 g/dl (14.0-18.0)
[2024-06-21 02:27] LABS: Anion Gap 16 (12-20); Blood Urea Nitrogen 34 mg/dL (9-16); Calcium 7.7 mg/dL (8.4-10.2); Carbon Dioxide 12 mmol/L (22-29); Chloride 117 mmol/L (96-108); Creatinine Clr Calc Pharmacy 12.8; Estimated Glomerular Filt Rate 13; Glucose Random 111 mg/dL (60-115); Iron 41 mcg/dL (45-160); Magnesium 1.6 mg/dL (1.6-2.6); Percent Iron Saturation 25 % (15-50); Phosphorus 4.6 mg/dL (2.7-4.5); Potassium 5.8 mmol/L (3.3-5.1); Sodium 139 mmol/L (135-145); Total Iron Binding Capacity 161 mcg/dL (228-428); Unsaturated Iron Binding 120 ug/dL
[2024-06-21 02:38] LABS: Ferritin 288 ng/mL (20-250)
[2024-06-21 02:44] LABS: Folate 5.6 ng/mL (> or = 4.0); Vitamin B12 256 pg/mL (200-900)
--- NOTE | 2024-06-21 03:05 | PM.EVENT ---
Event Note Date of Service: 06/21/24 Event Note: 2:08 AM - Hgb dropped to 6.7. Blood consent obtained and will transfuse one unit of PRBCs now. Iron panel has been ordered and some results are still pending. Upon further questioning patient stated that he has black stools in occasions as well as blood in urine (sometimes it is pink). He uses only baby aspirin and denied use of NSAIDs. Will start tx with Protonix 80 mg IV now then bid, get stool for occult blood and UA. Time Spent With Patient Time: Total time managing care of this patient today ____ minutes.
[2024-06-21 03:40] LABS: Appearance Urine Clear; Color Urine Yellow; Glucose Urine UA Negative (Negative); Leukocyte Esterase Urine Moderate (2+) (Negative); Nitrite Urine Negative (Negative); PH 5.5 (5.0-9.0); UMIC TRIGGER UACC YES; Urine Blood Moderate (2+) (Negative); Urine Ketones Negative (Negative); Urine Protein 30 (1+) mg/dL (Neg-Trace)
[2024-06-21] MEDS: Pantoprazole Sodium 40 MG/10 ML VIAL 80 MG IVPUSH (03:42)
[2024-06-21 03:43] LABS: Bacteria Urine 4+ (None Seen); Hyaline Casts Urine 0-2 /LPF (0-2); Squamous Epithelial Cell Urine 0-2 /HPF (0-2); UACC Culture Trigger YES
--- NOTE | 2024-06-21 04:14 | PC.NURSE ---
initial 15 minutes of blood transfusion begun, vss, lung sounds clear bilaterally.
--- NOTE | 2024-06-21 05:16 | PC.NURSE ---
pt placed in hospital bed for comfort. pt noted to be draining pink urine, aware.
[2024-06-21] MEDS: cefTRIAXone sodium 1 GM in 0.9 % Sodium Chloride 50 ML IV (05:34)
--- NOTE | 2024-06-21 05:34 | PC.NURSE ---
per hang antibiotics without blood cultures due to uti.
--- NOTE | 2024-06-21 07:08 | PC.NURSE ---
pharmacy called for agusto perez
[2024-06-21] MEDS: Sodium Bicarbonate 8.4% 100 MEQ in Dextrose 5 % 900 ML IV ×2 (07:23→19:55)
--- NOTE | 2024-06-21 08:34 | PC.NURSE ---
patient breakfast tray provided, sleeping comfortably at this time, told this RN that he was unable to sleep much last night, tray at bedside, patient allowed to sleep at this time
--- NOTE | 2024-06-21 09:35 | PM.CNNEP ---
History of Present Illness Reason for Consult Consult date: 06/21/24 Chief Complaint Chief complaint: Hyperkalemia History of Present Illness Narrative: RTANE consulted to stalin BULL on CKD and HyperK Chart reveiwed and full consult to follow [facility] Past Medical History Medical History Neuralgia Microalbuminuria Osteoarthritis HTN (hypertension) Back pain Hx of testicular cancer Obesity Vitamin D deficiency Mixed hyperlipidemia Sensorineural hearing loss Solitary lung nodule Lesion of liver IBS (irritable bowel syndrome) Rib fractures Gynecomastia Sleep apnea Chronic pancreatitis Anemia Atrial fibrillation Stress incontinence, male Hyperlipidemia Recurrent UTI Dysuria Genital warts Prostate cancer Urgency incontinence Surgical History Surgical History H/O colonoscopy History of orchiectomy Hx of radical prostatectomy History of surgery Social History Social History Patient Tobacco Use Status: Never used Tobacco Smoked in Last 30 Days: No Use of substances other than those prescribed or required for medical reasons: No Advance Directives: Yes Advance Directives Information Provided: Yes Advance Directives on File: No Do you have a plan to hurt others: No Plan Nutrition Risks: No Nutritional Risk Meds Allergies Allergy/AdvReac Type Severity Reaction Status Date / Time No Known Allergies Allergy Verified 06/20/24 12:23 [No Known Allergies*] Active Medications: Current Medications Acetaminophen (Acetaminophen 325 Mg Tablet) 650 mg PO Q6H PRN PRN Reason: Pain, Mild (Pain Scale 1-3), fever or headache Calcium Carbonate (Calcium Carbonate 750 Mg Tab.Chew) 750 mg PO Q4H PRN PRN Reason: Heartburn Sodium Bicarbonate 100 meq/ (Dextrose) 1,000 mls @ 100 mls/hr IV .Q10H [facility] Last Admin: 06/21/24 07:23 Dose: 100 mls/hr Ceftriaxone Sodium 1 gm/ (Sodium Chloride) 50 mls @ 100 mls/hr IV Q24H [facility] Last Infusion: 06/21/24 06:16 Dose: Infused Magnesium Hydroxide (Milk Of Magnesia 30 Ml Oral.Susp) 30 ml PO DAILY PRN PRN Reason: Constipation Melatonin (Melatonin 3 Mg Tablet) 6 mg PO BEDTIME PRN PRN Reason: Insomnia Ondansetron HCl (Ondansetron Hcl 4 Mg/2 Ml Vial) 4 mg IVPUSH Q8H PRN PRN Reason: Nausea and Vomiting Pantoprazole Sodium (Pantoprazole Sodium 40 Mg/10 Ml Vial) 40 mg IVPUSH BID@0630,1630 [facility] Sodium Chloride (0.9 % Sodium Chloride Flush 3 Ml Syringe) 3 ml IVFLUSH QSHIFT [facility] Last Admin: 06/21/24 08:11 Dose: Not Given Sodium Zirconium Cyclosilicate (Sodium Zirconium Cyclosilicate 5 Gm Powd.Pack) 15 gm PO DAILY [facility] Last Admin: 06/20/24 19:00 Dose: 15 gm Home Medications ?Medication ?Instructions ?Recorded ?Confirmed ?Last Taken ?Type amlodipine 10 mg tablet 10 mg PO DAILY 06/16/24 06/20/24 06/20/24 History aspirin 81 mg tablet,delayed 81 mg PO DAILY 06/16/24 06/16/24 06/13/24 History release calcitriol 0.25 mcg capsule 0.25 mcg PO DAILY 06/16/24 06/20/24 06/20/24 History metoprolol tartrate 25 mg tablet 25 mg PO BID 06/16/24 06/20/24 06/20/24 History sodium bicarbonate 650 mg tablet 650 mg PO BID 06/16/24 06/20/24 06/20/24 History ergocalciferol (vitamin D2) 1,250 1,250 mcg PO MO 06/20/24 06/20/24 06/05/24 History mcg (50,000 unit) capsule (Vitamin D2) ketotifen fumarate 0.025 % (0.035 1 drp ophthalmic (eye) Q12H 06/20/24 06/20/24 Unknown History %) eye drops Physical Exam Vital Signs: Last Vital Signs Temp 98.5 F 06/21/24 07:21 Pulse 67 06/21/24 07:21 Resp 14 06/21/24 07:21 BP 117/47 L 06/21/24 07:21 Pulse Ox 95 06/21/24 05:36 O2 Del Method Room Air 06/21/24 05:36 BMI result Body Mass Index 31.0 Results Lab Results 06/21/24 01:47 06/21/24 01:47 Lab results: Chemistry 06/20/24 06/20/24 06/21/24 17:06 21:13 01:47 Sodium 140 138 139 Potassium 6.1 H* 5.8 H 5.8 H Carbon Dioxide 13 L 10 L* D 12 L BUN 36 H 36 H 34 H Creatinine 4.56 H* 4.26 H* 4.24 H* Calcium 8.0 L 7.6 L 7.7 L Phosphorus 4.6 H Hematology 06/21/24 01:47 WBC 5.7 Hgb 6.7 L* Plt Count 179 Urinalysis 06/21/24 03:35 Urine Color Yellow Urine Appearance Clear Urine pH 5.5 Ur Specific [place] 1.010 Urine Protein 30 (1+) H Urine Glucose (UA) Negative Urine Ketones Negative Urine Blood Moderate (2+) H Urine Nitrite Negative Ur Leukocyte Esterase Moderate (2+) H Urine RBC 6-10 H Urine WBC 11-20 H Ur Squamous Epith Cells 0-2 Hyaline Casts 0-2 Procedures Date of Service Date of Service: 06/21/24
[2024-06-21 09:38] LABS: Hematocrit 24.3 % (42.0-52.0); Hemoglobin 7.7 g/dl (14.0-18.0); Mean Corpuscular HGB Conc 31.7 g/dl (31.0-36.0); Mean Corpuscular Hemoglobin 32.6 pg (27.0-33.0); Mean Platelet Volume 9.8 fL (9.4-12.4); Platelet Count 168 X10*3/uL (160-400); Red Blood Count 2.36 X10*6/uL (4.60-5.80); Red Cell Distribution Width 18.2 % (11.0-16.0); White Blood Count 5.8 X10*3/uL (4.8-10.8)
[2024-06-21 09:52] LABS: Anion Gap 13 (12-20); Blood Urea Nitrogen 32 mg/dL (9-16); Calcium 7.5 mg/dL (8.4-10.2); Carbon Dioxide 15 mmol/L (22-29); Chloride 115 mmol/L (96-108); Creatinine Clr Calc Pharmacy 13.4; Estimated Glomerular Filt Rate 14; Glucose Random 160 mg/dL (60-115); Potassium 5.2 mmol/L (3.3-5.1); Sodium 138 mmol/L (135-145)
[2024-06-21] MEDS: Acetaminophen 325 MG TABLET 650 MG PO (10:15)
[2024-06-21] MEDS: Sodium Zirconium Cyclosilicate 5 GM POWD.PACK 15 GM PO (10:16)
--- NOTE | 2024-06-21 10:25 | MHC.CM.PN ---
Pt lives alone, he is independent, no home health services. For DME: he has a walker, cane, w/c, and shower bench. [facility] is a , and [facility] PCP is Keyla Waters at the [facility]. He has a HCP, he is not able to provide a copy. [facility] can get [facility] from [facility] if [facility] needs them. Family to transport home at [place]. DCP: home, self care. CM to follow and assist with DC plan.
--- NOTE | 2024-06-21 11:58 | P.CNGI_ITS ---
History of Present Illness Data of Consult Service Date: 06/21/24 Requesting physician: Dorian Hadley Primary Care Provider: Keyla Waters MD HPI Reason for consult: anemia 89-year-old man w hx of CKD, prostate cancer in past, lichen sclerosis of penis and OA who I am seeing for assessment for anemia Patient had labs checked pre op for circumcision due to lichen sclerosis and this revealed acute on chronic kidney failure and anemia with HGB 7 g/dl with baseline around 10 g/dl so procedure was cancelled and patient sent to ED. Patient denies melena and claims normal stools. He has a very mild discomfort in lower abdomen. He has lost weight but this he attributes to of his , denies SI but he has poor appetite. He denies nausea, vomiting. No SOB, chest pain. He does admit to one isolated episode of rectal bleeding few months back. Ct imaging did not show any acute findings but UA was abn with moderate blood and he has been passing bloody urine. Review of Systems 2 Review of Systems: Constitutional : + Weight loss, No Fever, No Chills ENT/Mouth : No sore throat, No Rhinorrhea Eyes: No Swelling, No Redness Cardiovascular : No Chest Pain, No SOB, No Edema Respiratory : No Cough, No Sputum, No Wheezing Gastrointestinal : see HPI Genitourinary : NO Dysuria, No Urinary Frequency, No Hematuria, No Urgency Musculoskeletal : + joint pain, No Myalgias, No Joint Swelling Skin : No Skin Lesions, No rash Neuro : + Weakness, No Numbness, No Dizziness, No Headache Psych : No Anxiety/Panic, + Depression Heme/Lymph: No Bruising, No Lymphadenopathy Endocrine : No Polyuria, No Polydipsia All other systems reviewed and are negative. [facility] Past Medical History Medical History Neuralgia Microalbuminuria Osteoarthritis HTN (hypertension) Back pain Hx of testicular cancer Obesity Vitamin D deficiency Mixed hyperlipidemia Sensorineural hearing loss Solitary lung nodule Lesion of liver IBS (irritable bowel syndrome) Rib fractures Gynecomastia Sleep apnea Chronic pancreatitis Anemia Atrial fibrillation Stress incontinence, male Hyperlipidemia Recurrent UTI Dysuria Genital warts Prostate cancer Urgency incontinence Family History Pertinent family history: no Fh of colon cancer, IBD, ulcers Surgical History Surgical History H/O colonoscopy History of orchiectomy Hx of radical prostatectomy History of surgery Social History Social History Patient Tobacco Use Status: Never used Tobacco Smoked in Last 30 Days: No Use of substances other than those prescribed or required for medical reasons: No Advance Directives: Yes Advance Directives Information Provided: Yes Advance Directives on File: No Do you have a plan to hurt others: No Plan Nutrition Risks: No Nutritional Risk service: Yes Meds Allergies Allergy/AdvReac Type Severity Reaction Status Date / Time No Known Allergies Allergy Verified 06/20/24 12:23 [No Known Allergies*] Active Medications: Current Medications Acetaminophen (Acetaminophen 325 Mg Tablet) 650 mg PO Q6H PRN PRN Reason: Pain, Mild (Pain Scale 1-3), fever or headache Last Admin: 06/21/24 10:15 Dose: 650 mg Calcitriol (Calcitriol 0.25 Mcg Capsule) 0.25 mcg PO DAILY [facility] Calcium Carbonate (Calcium Carbonate 750 Mg Tab.Chew) 750 mg PO Q4H PRN PRN Reason: Heartburn Ergocalciferol (Ergocalciferol (Vitamin D2) 1,250 Mcg Capsule) 1,250 mcg PO MO [facility] Sodium Bicarbonate 100 meq/ (Dextrose) 1,000 mls @ 100 mls/hr IV .Q10H [facility] Last Admin: 06/21/24 07:23 Dose: 100 mls/hr Ceftriaxone Sodium 1 gm/ (Sodium Chloride) 50 mls @ 100 mls/hr IV Q24H [facility] Last Infusion: 06/21/24 06:16 Dose: Infused Ketotifen Fumarate (Ketotifen Fumarate 0.025% Oph 5 Ml Drpbtl) 1 drop EYE-BOTH BID [facility] Magnesium Hydroxide (Milk Of Magnesia 30 Ml Oral.Susp) 30 ml PO DAILY PRN PRN Reason: Constipation Melatonin (Melatonin 3 Mg Tablet) 6 mg PO BEDTIME PRN PRN Reason: Insomnia Ondansetron HCl (Ondansetron Hcl 4 Mg/2 Ml Vial) 4 mg IVPUSH Q8H PRN PRN Reason: Nausea and Vomiting Pantoprazole Sodium (Pantoprazole Sodium 40 Mg/10 Ml Vial) 40 mg IVPUSH BID@0630,1630 [facility] Sodium Bicarbonate (Sodium Bicarbonate 650 Mg Tablet) 650 mg PO BID [facility] Sodium Chloride (0.9 % Sodium Chloride Flush 3 Ml Syringe) 3 ml IVFLUSH QSHIFT [facility] Last Admin: 06/21/24 08:11 Dose: Not Given Sodium Zirconium Cyclosilicate (Sodium Zirconium Cyclosilicate 5 Gm Powd.Pack) 15 gm PO DAILY [facility] Last Admin: 06/21/24 10:16 Dose: 15 gm Home Medications ?Medication ?Instructions ?Recorded ?Confirmed ?Last Taken ?Type amlodipine 10 mg tablet 10 mg PO DAILY 06/16/24 06/20/24 06/20/24 History aspirin 81 mg tablet,delayed 81 mg PO DAILY 06/16/24 06/16/24 06/13/24 History release calcitriol 0.25 mcg capsule 0.25 mcg PO DAILY 06/16/24 06/20/24 06/20/24 History metoprolol tartrate 25 mg tablet 25 mg PO BID 06/16/24 06/20/24 06/20/24 History sodium bicarbonate 650 mg tablet 650 mg PO BID 06/16/24 06/20/24 06/20/24 History ergocalciferol (vitamin D2) 1,250 1,250 mcg PO MO 06/20/24 06/20/24 06/05/24 History mcg (50,000 unit) capsule (Vitamin D2) ketotifen fumarate 0.025 % (0.035 1 drp ophthalmic (eye) Q12H 06/20/24 06/20/24 Unknown History %) eye drops Physical Exam 2 Vital Signs: Vital Signs: Last Vital Signs Temp 98.5 F 06/21/24 07:21 Pulse 67 06/21/24 07:21 Resp 14 06/21/24 07:21 BP 117/47 L 06/21/24 07:21 Pulse Ox 95 06/21/24 05:36 O2 Del Method Room Air 06/21/24 05:36 BMI result Body Mass Index 31.0 EXAM: GENERAL: The patient is well developed and nontoxic. VITAL SIGNS:see workflow HEENT: Nonicteric sclerae, PERRLA, EOMI. Oropharynx clear. Moist mucous membranes. Conjunctivae appear pale . No thyroid mass. CHEST: Chest wall is nontender. HEART: Regular rate and rhythm without murmurs. LUNGS: Clear to auscultation bilaterally. ABDOMEN: Soft, positive bowel sounds, nontender, no organomegaly.no flank tenderness SKIN: No rash, no excessive bruising, petechiae, or purpura. NEUROLOGIC: Cranial nerves II-XII intact without motor/sensory deficit. Psych: normal affect pink urine in patel bag Results Labs 06/21/24 09:27 06/21/24 09:27 Labs: Short CBC 06/21/24 06/21/24 Range/Units 01:47 09:27 WBC 5.7 5.8 (4.8-10.8) X10*3/uL Hgb 6.7 L* 7.7 L (14.0-18.0) g/dl Hct 21.4 L 24.3 L (42.0-52.0) % Plt Count 179 168 (160-400) X10*3/uL BMP 06/20/24 06/20/24 06/21/24 17:06 21:13 01:47 Sodium 140 138 139 Potassium 6.1 H* 5.8 H 5.8 H Chloride 121 H 120 H 117 H Carbon Dioxide 13 L 10 L* D 12 L BUN 36 H 36 H 34 H Creatinine 4.56 H* 4.26 H* 4.24 H* Calcium 8.0 L 7.6 L 7.7 L 06/21/24 09:27 Sodium 138 Potassium 5.2 H Chloride 115 H Carbon Dioxide 15 L BUN 32 H Creatinine 4.07 H* Calcium 7.5 L Cardiac Enzymes 06/21/24 Range/Units 01:47 Total Creatine Kinase 83 (38-174) U/L Liver Function 06/20/24 Range/Units 21:13 Total Bilirubin 0.2 (0.0-1.0) mg/dL AST 14 (5-37) U/L ALT 16 (0-40) U/L Alkaline Phosphatase 115 (39-117) U/L Albumin 3.2 L (3.5-5.0) g/dL Urine 06/21/24 Range/Units 03:35 Urine Color Yellow Urine Appearance Clear Urine pH 5.5 (5.0-9.0) Ur Specific [place] 1.010 (1.005-1.025) Urine Protein 30 (1+) H (Neg-Trace) mg/dL Urine Glucose (UA) Negative (Negative) mg/dL Imaging CT scan - abdomen: Attestation: I personally reviewed and interpreted this imaging study as follows: (chronci pancreatitis, atherosclerosis, liver cysts, degen spinal changes ) Assessment and Plan (1) Macrocytic anemia with vitamin B12 deficiency: Status: Acute Plan 1/ multifactorial anemia with acute on chronic CKD, low B12, and hematuria, possible nutritional issues as well as he has poor appetite from of his . PLAN: 1/ Recommend urology assessment given he has hematuria and maybe nephrology input as well due to worsening renal fn, if this work up is neg and he has ongoing anemia then we can consider EGD and colonoscopy. He has no overt symptoms right now but did have one episode of rectal bleeding several months back. CT without any masses or lesion. will sign off, but please re consult based on above Procedures Date of Service Date of Service: 06/21/24
--- NOTE | 2024-06-21 12:47 | PC.NURSE ---
patient urinal emptied, 1000mL of blood tinged urine drained from bladder, admitting team aware of patients urine
[2024-06-21 12:56] LABS: Carbon Dioxide 10 mmol/L (22-29)
--- NOTE | 2024-06-21 13:22 | PM.UROCN ---
History of Present Illness Consult details Consult date: 06/21/24 Narrative: Ry is an 89 year old male states he has some memory issues, followed by Dr. Bella for h/o prostate cancer (PSA -12/04/22- <0.1 ng/mL) and urinary incontinence uses diapers during the day and [place] catheter at night. who was scheduled for elective circumcision for redundant foreskin/lichen sclerosis. Procedure cancelled due to elevatate K+ and elevated creat. Nephrology consulted. Review of Systems Review of Systems: Yes all other systems are reviewed and are negative Constitutional: Constitutional: Reports no additional constitutional complaints Eyes: Eyes: Reports no additional eye complaints ENT: Reports system reviewed and no additional complaints, except as documented Cardiovascular: Cardiovascular: Reports no additional cardiovascular complaints Respiratory: Respiratory: Reports no additional respiratory complaints Gastrointestinal: Gastrointestinal: Reports no additional gastrointestinal complaints Genitourinary: Genitourinary: Reports as per HPI Musculoskeletal: Musculoskeletal: Reports no additional musculoskeletal complaints Integumentary/Breasts: Skin/Breast: Reports system reviewed and no additional complaints, except as docu Neurologic: Reports system reviewed and no additional complaints, except as documented Psychiatric: Psychiatric: Reports no additional psychiatric complaints Endocrine: Endocrine: Reports no additional endocrine complaints Hematologic/Lymphatic: Hematologic/Lymphatic: Reports no additional hematologic/lymphatic complaints Allergic/Immunologic: Allergic/Immunologic: Reports no additional allergic/immunologic complaints PMFSH Past Medical History Medical History Neuralgia Microalbuminuria Osteoarthritis HTN (hypertension) Back pain Hx of testicular cancer Obesity Vitamin D deficiency Mixed hyperlipidemia Sensorineural hearing loss Solitary lung nodule Lesion of liver IBS (irritable bowel syndrome) Rib fractures Gynecomastia Sleep apnea Chronic pancreatitis Anemia Atrial fibrillation Stress incontinence, male Hyperlipidemia Recurrent UTI Dysuria Genital warts Prostate cancer Urgency incontinence Surgical History Surgical History H/O colonoscopy History of orchiectomy Hx of radical prostatectomy History of surgery Social History Social History Patient Tobacco Use Status: Never used Tobacco Smoked in Last 30 Days: No Use of substances other than those prescribed or required for medical reasons: No Advance Directives: Yes Advance Directives Information Provided: Yes Advance Directives on File: No Do you have a plan to hurt others: No Plan Nutrition Risks: No Nutritional Risk service: Yes Meds Allergies Allergy/AdvReac Type Severity Reaction Status Date / Time No Known Allergies Allergy Verified 06/20/24 12:23 [No Known Allergies*] Active Medications: Current Medications Acetaminophen (Acetaminophen 325 Mg Tablet) 650 mg PO Q6H PRN PRN Reason: Pain, Mild (Pain Scale 1-3), fever or headache Last Admin: 06/21/24 10:15 Dose: 650 mg Calcitriol (Calcitriol 0.25 Mcg Capsule) 0.25 mcg PO DAILY [facility] Calcium Carbonate (Calcium Carbonate 750 Mg Tab.Chew) 750 mg PO Q4H PRN PRN Reason: Heartburn Ergocalciferol (Ergocalciferol (Vitamin D2) 1,250 Mcg Capsule) 1,250 mcg PO MO [facility] Sodium Bicarbonate 100 meq/ (Dextrose) 1,000 mls @ 100 mls/hr IV .Q10H [facility] Last Admin: 06/21/24 07:23 Dose: 100 mls/hr Ceftriaxone Sodium 1 gm/ (Sodium Chloride) 50 mls @ 100 mls/hr IV Q24H [facility] Last Infusion: 06/21/24 06:16 Dose: Infused Ketotifen Fumarate (Ketotifen Fumarate 0.025% Oph 5 Ml Drpbtl) 1 drop EYE-BOTH BID [facility] Last Admin: 06/21/24 12:19 Dose: Not Given Magnesium Hydroxide (Milk Of Magnesia 30 Ml Oral.Susp) 30 ml PO DAILY PRN PRN Reason: Constipation Melatonin (Melatonin 3 Mg Tablet) 6 mg PO BEDTIME PRN PRN Reason: Insomnia Ondansetron HCl (Ondansetron Hcl 4 Mg/2 Ml Vial) 4 mg IVPUSH Q8H PRN PRN Reason: Nausea and Vomiting Pantoprazole Sodium (Pantoprazole Sodium 40 Mg/10 Ml Vial) 40 mg IVPUSH BID@0630,1630 [facility] Sodium Bicarbonate (Sodium Bicarbonate 650 Mg Tablet) 650 mg PO BID [facility] Sodium Chloride (0.9 % Sodium Chloride Flush 3 Ml Syringe) 3 ml IVFLUSH QSHIFT [facility] Last Admin: 06/21/24 08:11 Dose: Not Given Sodium Zirconium Cyclosilicate (Sodium Zirconium Cyclosilicate 5 Gm Powd.Pack) 15 gm PO DAILY [facility] Last Admin: 06/21/24 10:16 Dose: 15 gm Home Medications ?Medication ?Instructions ?Recorded ?Confirmed ?Last Taken ?Type amlodipine 10 mg tablet 10 mg PO DAILY 06/16/24 06/20/24 06/20/24 History aspirin 81 mg tablet,delayed 81 mg PO DAILY 06/16/24 06/16/24 06/13/24 History release calcitriol 0.25 mcg capsule 0.25 mcg PO DAILY 06/16/24 06/20/24 06/20/24 History metoprolol tartrate 25 mg tablet 25 mg PO BID 06/16/24 06/20/24 06/20/24 History sodium bicarbonate 650 mg tablet 650 mg PO BID 06/16/24 06/20/24 06/20/24 History ergocalciferol (vitamin D2) 1,250 1,250 mcg PO MO 06/20/24 06/20/24 06/05/24 History mcg (50,000 unit) capsule (Vitamin D2) ketotifen fumarate 0.025 % (0.035 1 drp ophthalmic (eye) Q12H 06/20/24 06/20/24 Unknown History %) eye drops Physical Exam Vital Signs: Vital Signs: Last Vital Signs Temp 98.5 F 06/21/24 07:21 Pulse 67 06/21/24 07:21 Resp 14 06/21/24 07:21 BP 117/47 L 06/21/24 07:21 Pulse Ox 95 06/21/24 05:36 O2 Del Method Room Air 06/21/24 05:36 BMI result Body Mass Index 31.0 Const: General: healthy appearing, no acute distress and well developed Orientation/consciousness: patient oriented x3 HEENT: Head: Yes normocephalic and Yes atraumatic Eyes: Conjunctivae: conjunctivae normal Neck: Neck: Yes normal visual inspection Chest: Chest palpation & inspection: normal inspection of the chest Resp: Effort & Inspection: normal respiratory effort Cardio: Rate: regular rate GI: Inspection: Yes normal to inspection Palpation (GI): Soft to palpation : Scrotum: scrotum normal Neuro: General: patient oriented x3 Psych: Appearance: grossly normal Results Labs 06/21/24 09:27 06/21/24 09:27 Labs: Abnormal lab results 06/20/24 06/20/24 06/21/24 Range/Units 17:06 21:13 01:47 RBC 1.95 L (4.60-5.80) X10*6/uL Hgb 6.7 L* (14.0-18.0) g/dl Hct 21.4 L (42.0-52.0) % MCV 109.7 H (80.0-98.0) fL MCH 34.4 H (27.0-33.0) pg RDW (11.0-16.0) % Percent Retic 1.9 H (0.5-1.8) % Immature Retic Fraction 16.1 H (2.3-13.4) % VBG HCO3 (22-26) mmol/L Potassium 6.1 H* 5.8 H 5.8 H (3.3-5.1) mmol/L Chloride 121 H 120 H 117 H (96-108) mmol/L Carbon Dioxide 13 L 10 L* D 12 L (22-29) mmol/L BUN 36 H 36 H 34 H (9-16) mg/dL Creatinine 4.56 H* 4.26 H* 4.24 H* (0.5-1.4) mg/dL Random Glucose 145 H (60-115) mg/dL Calcium 8.0 L 7.6 L 7.7 L (8.4-10.2) mg/dL Phosphorus 4.6 H (2.7-4.5) mg/dL Iron 41 L (45-160) mcg/dL TIBC 161 L (228-428) mcg/dL Ferritin 288 H (20-250) ng/mL Total Protein 5.7 L (6.5-8.0) g/dL Albumin 3.2 L (3.5-5.0) g/dL Urine Protein (Neg-Trace) mg/dL Urine Blood (Negative) Ur Leukocyte Esterase (Negative) Urine RBC (0-2) /HPF Urine WBC (0-5) /HPF Crossmatch 06/21/24 06/21/24 06/21/24 Range/Units 01:58 02:26 03:35 RBC (4.60-5.80) X10*6/uL Hgb (14.0-18.0) g/dl Hct (42.0-52.0) % MCV (80.0-98.0) fL MCH (27.0-33.0) pg RDW (11.0-16.0) % Percent Retic (0.5-1.8) % Immature Retic Fraction (2.3-13.4) % VBG HCO3 12 L (22-26) mmol/L Potassium (3.3-5.1) mmol/L Chloride (96-108) mmol/L Carbon Dioxide (22-29) mmol/L BUN (9-16) mg/dL Creatinine (0.5-1.4) mg/dL Random Glucose (60-115) mg/dL Calcium (8.4-10.2) mg/dL Phosphorus (2.7-4.5) mg/dL Iron (45-160) mcg/dL TIBC (228-428) mcg/dL Ferritin (20-250) ng/mL Total Protein (6.5-8.0) g/dL Albumin (3.5-5.0) g/dL Urine Protein 30 (1+) H (Neg-Trace) mg/dL Urine Blood Moderate (2+) H (Negative) Ur Leukocyte Esterase Moderate (2+) H (Negative) Urine RBC 6-10 H (0-2) /HPF Urine WBC 11-20 H (0-5) /HPF Crossmatch See Detail 06/21/24 Range/Units 09:27 RBC 2.36 L D (4.60-5.80) X10*6/uL Hgb 7.7 L (14.0-18.0) g/dl Hct 24.3 L (42.0-52.0) % MCV 103.0 H D (80.0-98.0) fL MCH (27.0-33.0) pg RDW 18.2 H (11.0-16.0) % Percent Retic (0.5-1.8) % Immature Retic Fraction (2.3-13.4) % VBG HCO3 (22-26) mmol/L Potassium 5.2 H (3.3-5.1) mmol/L Chloride 115 H (96-108) mmol/L Carbon Dioxide 15 L (22-29) mmol/L BUN 32 H (9-16) mg/dL Creatinine 4.07 H* (0.5-1.4) mg/dL Random Glucose 160 H (60-115) mg/dL Calcium 7.5 L (8.4-10.2) mg/dL Phosphorus (2.7-4.5) mg/dL Iron (45-160) mcg/dL TIBC (228-428) mcg/dL Ferritin (20-250) ng/mL Total Protein (6.5-8.0) g/dL Albumin (3.5-5.0) g/dL Urine Protein (Neg-Trace) mg/dL Urine Blood (Negative) Ur Leukocyte Esterase (Negative) Urine RBC (0-2) /HPF Urine WBC (0-5) /HPF Crossmatch Short CBC 06/21/24 06/21/24 Range/Units 01:47 09:27 WBC 5.7 5.8 (4.8-10.8) X10*3/uL Hgb 6.7 L* 7.7 L (14.0-18.0) g/dl Hct 21.4 L 24.3 L (42.0-52.0) % Plt Count 179 168 (160-400) X10*3/uL BMP 06/20/24 06/20/24 06/21/24 17:06 21:13 01:47 Sodium 140 138 139 Potassium 6.1 H* 5.8 H 5.8 H Chloride 121 H 120 H 117 H Carbon Dioxide 13 L 10 L* D 12 L BUN 36 H 36 H 34 H Creatinine 4.56 H* 4.26 H* 4.24 H* Calcium 8.0 L 7.6 L 7.7 L 06/21/24 09:27 Sodium 138 Potassium 5.2 H Chloride 115 H Carbon Dioxide 15 L BUN 32 H Creatinine 4.07 H* Calcium 7.5 L Cardiac Enzymes 06/21/24 Range/Units 01:47 Total Creatine Kinase 83 (38-174) U/L Liver Function 06/20/24 Range/Units 21:13 Total Bilirubin 0.2 (0.0-1.0) mg/dL AST 14 (5-37) U/L ALT 16 (0-40) U/L Alkaline Phosphatase 115 (39-117) U/L Albumin 3.2 L (3.5-5.0) g/dL Urine 06/21/24 Range/Units 03:35 Urine Color Yellow Urine Appearance Clear Urine pH 5.5 (5.0-9.0) Ur Specific [place] 1.010 (1.005-1.025) Urine Protein 30 (1+) H (Neg-Trace) mg/dL Urine Glucose (UA) Negative (Negative) mg/dL All other labs normal. Imaging Abdomen CT scan report/results: report reviewed and image reviewed CT scan - pelvis: report reviewed and image reviewed Additional studies: Date of Service: 06/20/24 Procedure(s): CT abdomen pelvis wo IV con Accession Number(s): [id number] cc: Rey Dumont MD; Keyla Waters MD~ EXAMINATION: CT ABDOMEN AND PELVIS WITHOUT CONTRAST CLINICAL INFORMATION: Left hip pain with question of obstructive uropathy COMPARISON: CT abdomen pelvis 05/07/2020 TECHNIQUE: Multidetector volumetric imaging was performed from the superior aspect of the liver through the pubic symphysis. Sagittal and coronal reformatted images were obtained on the technologist's workstation. This CT examination was performed using dose optimization techniques as appropriate, variously including the following: *Automated exposure control *Adjustment of mA and/or kV according to patient size (this includes techniques or standardized protocols for targeted exams where dose is matched to indication/reason for exam; i.e. extremities or head) *Use of iterative reconstruction technique DLP: 626 mGy-cm FINDINGS: LUNG BASES: Left hemidiaphragm is mildly elevated with some left basilar scarring. Some mild traction bronchiectasis is seen at the right lung base. No consolidations, effusions or suspicious masses. LIVER, GALLBLADDER, AND BILIARY TREE: The liver is small in size with normal shape and attenuation. Innumerable hepatic cysts are present. No focal hepatic lesion or biliary ductal dilatation is present. The gallbladder is contracted but otherwise unremarkable with no evidence of radiopaque gallstones, gallbladder wall thickening, or obvious pericholecystic inflammatory changes. PANCREAS: Chronic calcifications are seen throughout the pancreas with large confluent areas of calcification in the pancreatic head. No inflammatory changes are seen around the pancreas to suggest acute pancreatitis. SPLEEN: Unremarkable. ADRENAL GLANDS: Mild left adrenal thickening. No discrete adrenal masses KIDNEYS AND URETERS: The kidneys are small, the right smaller than the left. Bilateral benign Bosniak class I renal cysts are noted which require no additional imaging or follow-up. No solid renal masses are seen. There is no nephrolithiasis. No hydronephrosis. BLADDER: A Patel catheter is present in the bladder which is decompressed. GASTROINTESTINAL TRACT: The small and large bowel are unremarkable. The appendix is unremarkable. ABDOMINAL WALL: No significant hernia is appreciated. LYMPH NODES: No retroperitoneal lymphadenopathy. VASCULAR: Calcific atherosclerotic changes are present in the aorta and iliofemoral vessels. There is no evidence of an abdominal aortic aneurysm. PELVIC VISCERA: Prostate and seminal vesicles not seen. Please correlate with any surgical history OSSEOUS STRUCTURES: Marked degenerative changes are present in the hips. Moderate degenerative changes are present in the spine. Minimal grade 1 anterolisthesis of L4 upon L5 IMPRESSION: 1. Severe arthritic changes are present in the hips, left greater than right. This could certainly be a cause of left hip pain. 2. Innumerable benign hepatic cysts. 3. Chronic calcifications in the pancreas. 4. Small kidneys with benign Bosniak class I renal cysts which need no additional imaging or follow-up. 5. Other incidental findings as described above. Assessment and Plan (1) ML (acute kidney injury): Status: Acute (2) Lichen sclerosus of penis: Status: Acute (3) Prostate cancer: Status: Acute (4) Urgency incontinence: Status: Acute Plan D/C patel, pt is incontinent of urine. Plan to reschedule nonurgent, elective outpatient circumcision. CTAP - small kidneys, no evidence of obstructive uropathy. Nephrology consulted Procedures Date of Service Date of Service: 06/21/24
--- NOTE | 2024-06-21 13:40 | P.PNIM_ITS ---
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 Review of Systems All other system reviewed and are negative. Physical Exam 2 Vital Signs: Vital Signs: Last Vital Signs Temp 98.5 F 06/21/24 07:21 Pulse 67 06/21/24 07:21 Resp 14 06/21/24 07:21 BP 117/47 L 06/21/24 07:21 Pulse Ox 95 06/21/24 05:36 O2 Del Method Room Air 06/21/24 05:36 BMI result Body Mass Index 31.0 Const: Other: General awake alert x3, resting comfortably in no acute distress. Neck supple no JVD. CVS regular rate rhythm, Respiratory lungs clear to auscultation, no respiratory distress, no wheeze, no rhonchi. Gastrointestinal abdomen soft, non tender, bowel sounds audible, no guarding , no rigidity. Extremities no edema. Neuro non focal . Skin no rash Psych appropriate affect Valentine punch colored urine Objective Data Active Medications Acetaminophen (Acetaminophen 325 Mg Tablet) 650 mg PO Q6H PRN PRN Reason: Pain, Mild (Pain Scale 1-3), fever or headache Last Admin: 06/21/24 10:15 Dose: 650 mg Documented By: IBAN Calcitriol (Calcitriol 0.25 Mcg Capsule) 0.25 mcg PO DAILY [facility] Calcium Carbonate (Calcium Carbonate 750 Mg Tab.Chew) 750 mg PO Q4H PRN PRN Reason: Heartburn Ergocalciferol (Ergocalciferol (Vitamin D2) 1,250 Mcg Capsule) 1,250 mcg PO MO [facility] Sodium Bicarbonate 100 meq/ (Dextrose) 1,000 mls @ 100 mls/hr IV .Q10H [facility] Last Admin: 06/21/24 07:23 Dose: 100 mls/hr Documented By: IBAN Ceftriaxone Sodium 1 gm/ (Sodium Chloride) 50 mls @ 100 mls/hr IV Q24H [facility] Last Infusion: 06/21/24 06:16 Dose: Infused Documented By: CATY Ketotifen Fumarate (Ketotifen Fumarate 0.025% Oph 5 Ml Drpbtl) 1 drop EYE-BOTH BID [facility] Last Admin: 06/21/24 12:19 Dose: Not Given Documented By: IBAN Non-Admin Reason: Med Not Available Magnesium Hydroxide (Milk Of Magnesia 30 Ml Oral.Susp) 30 ml PO DAILY PRN PRN Reason: Constipation Melatonin (Melatonin 3 Mg Tablet) 6 mg PO BEDTIME PRN PRN Reason: Insomnia Ondansetron HCl (Ondansetron Hcl 4 Mg/2 Ml Vial) 4 mg IVPUSH Q8H PRN PRN Reason: Nausea and Vomiting Pantoprazole Sodium (Pantoprazole Sodium 40 Mg/10 Ml Vial) 40 mg IVPUSH BID@0630,1630 [facility] Sodium Bicarbonate (Sodium Bicarbonate 650 Mg Tablet) 650 mg PO BID [facility] Sodium Chloride (0.9 % Sodium Chloride Flush 3 Ml Syringe) 3 ml IVFLUSH QSHIFT [facility] Last Admin: 06/21/24 08:11 Dose: Not Given Documented By: IBAN Non-Admin Reason: IV Running Sodium Zirconium Cyclosilicate (Sodium Zirconium Cyclosilicate 5 Gm Powd.Pack) 15 gm PO DAILY [facility] Last Admin: 06/21/24 10:16 Dose: 15 gm Documented By: IBAN Labs 06/22/24 06:02 06/22/24 06:02 Labs: Laboratory Results - last 24 hr 06/20/24 06/20/24 06/21/24 17:06 21:13 01:47 MCV 109.7 H MCH 34.4 H MCHC 31.3 RDW 14.8 Plt Count 179 MPV 10.3 Absolute Nucleated RBC 0.000 Nucleated RBC % (auto) 0.0 Smear Path Review Cancelled Absolute Retic 0.037 Percent Retic 1.9 H Immature Retic Fraction 16.1 H Retic Hgb Equivalent 31.9 VBG pH VBG pCO2 VBG pO2 VBG HCO3 VBG O2 Saturation VBG Base Excess Anion Gap 12 14 16 Estim Creat Clear Calc 11.9 12.8 12.8 Estimated GFR 12 13 13 Random Glucose 145 H 91 111 Calcium 8.0 L 7.6 L 7.7 L Phosphorus 4.6 H Magnesium 1.6 Iron 41 L TIBC 161 L % Saturation 25 Unsat Iron Binding 120 Ferritin 288 H Total Bilirubin 0.2 AST 14 ALT 16 Alkaline Phosphatase 115 Total Creatine Kinase 83 Total Protein 5.7 L Albumin 3.2 L Vitamin B12 256 Folate 5.6 Urine Color Urine Appearance Urine pH Ur Specific [place] Urine Protein Urine Glucose (UA) Urine Ketones Urine Blood Urine Nitrite Ur Leukocyte Esterase Urine RBC Urine WBC Ur Squamous Epith Cells Urine Bacteria Hyaline Casts Blood Type Antibody Screen Crossmatch 06/21/24 06/21/24 06/21/24 01:58 02:26 03:35 MCV MCH MCHC RDW Plt Count MPV Absolute Nucleated RBC Nucleated RBC % (auto) Smear Path Review Absolute Retic Percent Retic Immature Retic Fraction Retic Hgb Equivalent VBG pH 7.35 VBG pCO2 22 VBG pO2 143 VBG HCO3 12 L VBG O2 Saturation 99.0 VBG Base Excess -11.5 Anion Gap Estim Creat Clear Calc Estimated GFR Random Glucose Calcium Phosphorus Magnesium Iron TIBC % Saturation Unsat Iron Binding Ferritin Total Bilirubin AST ALT Alkaline Phosphatase Total Creatine Kinase Total Protein Albumin Vitamin B12 Folate Urine Color Yellow Urine Appearance Clear Urine pH 5.5 Ur Specific [place] 1.010 Urine Protein 30 (1+) H Urine Glucose (UA) Negative Urine Ketones Negative Urine Blood Moderate (2+) H Urine Nitrite Negative Ur Leukocyte Esterase Moderate (2+) H Urine RBC 6-10 H Urine WBC 11-20 H Ur Squamous Epith Cells 0-2 Urine Bacteria 4+ Hyaline Casts 0-2 Blood Type O Positive Antibody Screen NEGATIVE Crossmatch See Detail 06/21/24 09:27 MCV 103.0 H D MCH 32.6 MCHC 31.7 RDW 18.2 H Plt Count 168 MPV 9.8 Absolute Nucleated RBC 0.000 Nucleated RBC % (auto) 0.0 Smear Path Review Absolute Retic Percent Retic Immature Retic Fraction Retic Hgb Equivalent VBG pH VBG pCO2 VBG pO2 VBG HCO3 VBG O2 Saturation VBG Base Excess Anion Gap 13 Estim Creat Clear Calc 13.4 Estimated GFR 14 Random Glucose 160 H Calcium 7.5 L Phosphorus Magnesium Iron TIBC % Saturation Unsat Iron Binding Ferritin Total Bilirubin AST ALT Alkaline Phosphatase Total Creatine Kinase Total Protein Albumin Vitamin B12 Folate Urine Color Urine Appearance Urine pH Ur Specific [place] Urine Protein Urine Glucose (UA) Urine Ketones Urine Blood Urine Nitrite Ur Leukocyte Esterase Urine RBC Urine WBC Ur Squamous Epith Cells Urine Bacteria Hyaline Casts Blood Type Antibody Screen Crossmatch Assessment and Plan (1) Acute hyperkalemia: Status: Acute Plan 89-year-old man scheduled for circumcision due to lichen sclerosis, but noted to have potassium of 6.6, creatinine 4.50. Abdominal CT showed no obstruction, Patient has a history of hyperkalemia and uses Lokelma at home he also has a history of CKD Unfortunately, the procedure was canceled and patient admitted for further follow-up. 89 year old man admitted with ML, hyperkalemia and Anemia found in PACU. ML on ckd 5 with non Ag metabolic acidosis no obstruction on abd ct Creatinine trending down from 4.26 to 4.07, CPK 83 cont iv sodabicarb drip , low phosphorus and low potassium diet Valentine catheter seen by Dr Pool /follow bmp Hyperkalemia due to above Potassium improved from 5.8-5.2 continue Lokelma Repeat BMP No ekg changes noted Hematuria Follows with Dr. 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 Question due to infection UA positive for 4+ bacteria, moderate leukocytes and 11-20 WBC, urine culture pending no obstruction noted on CT scan Seen by Urology they recommend to DC Valentine catheter, plan to reschedule non urgent elective outpatient circumcision Consider CBI if hematuria persist/follow CBC. HTN stable BP, avoid hypotension, hold amlodipine continue metoprolol Acute on chronic Anemia Due to hematuria/ history of intermittent black stools, no active GI bleed labs from [facility] [place] 2022 show HH of 8.6/28.2, hemoglobin dropped to 6.7 improved to 7.7 after 1 unit of packed RBC Iron studies not consistent with iron deficiency, normal B12 and folate Seen by Gastroenterology they recommend outpatient follow-up, will transition to by mouth PPI Hx of afib Continue beta-blockers not on anticoagulation, Daughter not 100% sure why he is not on AC, hold aspirin Chronic hip pain Symptomatic treatment DVT prophylaxis with SCD boots secondary to anemia Full code In my clinical judgment patient requires continued inpatient hospitalization for management of acute on chronic kidney disease/hematuria/anemia requiring frequent CBC monitoring, IV soda bicarb and expert consultation. Quality Stroke Does the patient have a stroke diagnosis?: No VTE Prior VTE?: No VTE Risk Level:: Medical - moderate - high VTE Device Contraindication: N/A - Device Ordered VTE Drug Contraindication: Treatment Not Indicated
[2024-06-21 15:45] LABS: Anion Gap 14 (12-20); Blood Urea Nitrogen 29 mg/dL (9-16); Calcium 7.3 mg/dL (8.4-10.2); Carbon Dioxide 14 mmol/L (22-29); Chloride 115 mmol/L (96-108); Creatinine Clr Calc Pharmacy 13.4; Estimated Glomerular Filt Rate 14; Glucose Random 186 mg/dL (60-115); Potassium 5.2 mmol/L (3.3-5.1); Sodium 138 mmol/L (135-145)
--- NOTE | 2024-06-21 16:10 | PM.CNNEP ---
History of Present Illness Reason for Consult Consult date: 06/21/24 Chief Complaint Chief complaint: Hyperkalemia History of Present Illness Narrative: RTANE consulted for ML on adv CKD and HyperK H/O adv CKD with SCr 3.9 ( 2022 on [facility] EHR), HTN, small echogenic kidneys adm for elective uro surg for circumcision but note severe hyperK PT is a poor historian and info obtainied from EHR. Overall feeling ok and has no complaints. Events overnight noted with hyperK treated as noted Review of Systems Review of Systems All other system reviewed and are negative. Yes all other systems are reviewed and are negative Constitutional: Reports no additional constitutional complaints Eyes: Reports no additional eye complaints Reports system reviewed and no additional complaints, except as documented Cardiovascular: Reports no additional cardiovascular complaints Respiratory: Reports no additional respiratory complaints Gastrointestinal: Reports no additional gastrointestinal complaints Genitourinary: Reports as per HPI Musculoskeletal: Reports no additional musculoskeletal complaints Skin/Breast: Reports system reviewed and no additional complaints, except as docu Reports system reviewed and no additional complaints, except as documented Psychiatric: Reports no additional psychiatric complaints Endocrine: Reports no additional endocrine complaints Hematologic/Lymphatic: Reports no additional hematologic/lymphatic complaints Allergic/Immunologic: Reports no additional allergic/immunologic complaints PMFSH Past Medical History Medical History Neuralgia Microalbuminuria Osteoarthritis HTN (hypertension) Back pain Hx of testicular cancer Obesity Vitamin D deficiency Mixed hyperlipidemia Sensorineural hearing loss Solitary lung nodule Lesion of liver IBS (irritable bowel syndrome) Rib fractures Gynecomastia Sleep apnea Chronic pancreatitis Anemia Atrial fibrillation Stress incontinence, male Hyperlipidemia Recurrent UTI Dysuria Genital warts Prostate cancer Urgency incontinence Family History Pertinent family history: no Fh of colon cancer, IBD, ulcers Surgical History Surgical History H/O colonoscopy History of orchiectomy Hx of radical prostatectomy History of surgery Social History Social History Patient Tobacco Use Status: Never used Tobacco service: Yes Meds Allergies Allergy/AdvReac Type Severity Reaction Status Date / Time No Known Allergies Allergy Verified 06/20/24 12:23 [No Known Allergies*] Active Medications: Current Medications Acetaminophen (Acetaminophen 325 Mg Tablet) 650 mg PO Q6H PRN PRN Reason: Pain, Mild (Pain Scale 1-3), fever or headache Last Admin: 06/21/24 10:15 Dose: 650 mg Calcitriol (Calcitriol 0.25 Mcg Capsule) 0.25 mcg PO DAILY [facility] Calcium Carbonate (Calcium Carbonate 750 Mg Tab.Chew) 750 mg PO Q4H PRN PRN Reason: Heartburn Ergocalciferol (Ergocalciferol (Vitamin D2) 1,250 Mcg Capsule) 1,250 mcg PO MO [facility] Sodium Bicarbonate 100 meq/ (Dextrose) 1,000 mls @ 100 mls/hr IV .Q10H [facility] Last Admin: 06/21/24 07:23 Dose: 100 mls/hr Ceftriaxone Sodium 1 gm/ (Sodium Chloride) 50 mls @ 100 mls/hr IV Q24H [facility] Last Infusion: 06/21/24 06:16 Dose: Infused Ketotifen Fumarate (Ketotifen Fumarate 0.025% Oph 5 Ml Drpbtl) 1 drop EYE-BOTH BID [facility] Last Admin: 06/21/24 12:19 Dose: Not Given Magnesium Hydroxide (Milk Of Magnesia 30 Ml Oral.Susp) 30 ml PO DAILY PRN PRN Reason: Constipation Melatonin (Melatonin 3 Mg Tablet) 6 mg PO BEDTIME PRN PRN Reason: Insomnia Metoprolol Tartrate (Metoprolol Tartrate 25 Mg Tablet) 25 mg PO BID [facility]; Protocol Ondansetron HCl (Ondansetron Hcl 4 Mg/2 Ml Vial) 4 mg IVPUSH Q8H PRN PRN Reason: Nausea and Vomiting Pantoprazole Sodium (Pantoprazole Sodium 40 Mg/10 Ml Vial) 40 mg IVPUSH BID@0630,1630 [facility] Sodium Bicarbonate (Sodium Bicarbonate 650 Mg Tablet) 650 mg PO BID [facility] Sodium Chloride (0.9 % Sodium Chloride Flush 3 Ml Syringe) 3 ml IVFLUSH QSHIFT [facility] Last Admin: 06/21/24 08:11 Dose: Not Given Sodium Zirconium Cyclosilicate (Sodium Zirconium Cyclosilicate 10 Gm Powd.Pack) 10 gm PO DAILY [facility] Home Medications ?Medication ?Instructions ?Recorded ?Confirmed ?Last Taken ?Type amlodipine 10 mg tablet 10 mg PO DAILY 06/16/24 06/20/24 06/20/24 History aspirin 81 mg tablet,delayed 81 mg PO DAILY 06/16/24 06/16/24 06/13/24 History release calcitriol 0.25 mcg capsule 0.25 mcg PO DAILY 06/16/24 06/20/24 06/20/24 History metoprolol tartrate 25 mg tablet 25 mg PO BID 06/16/24 06/20/24 06/20/24 History sodium bicarbonate 650 mg tablet 650 mg PO BID 06/16/24 06/20/24 06/20/24 History ergocalciferol (vitamin D2) 1,250 1,250 mcg PO MO 06/20/24 06/20/24 06/05/24 History mcg (50,000 unit) capsule (Vitamin D2) ketotifen fumarate 0.025 % (0.035 1 drp ophthalmic (eye) Q12H 06/20/24 06/20/24 Unknown History %) eye drops Physical Exam Vital Signs: Last Vital Signs Temp 98.5 F 06/21/24 07:21 Pulse 67 06/21/24 07:21 Resp 14 06/21/24 07:21 BP 117/47 L 06/21/24 07:21 Pulse Ox 95 06/21/24 05:36 O2 Del Method Room Air 06/21/24 05:36 BMI result Body Mass Index 31.0 Const Other: General awake alert x3, resting comfortably in no acute distress. Neck supple no JVD. CVS regular rate rhythm, Respiratory lungs clear to auscultation, no respiratory distress, no wheeze, no rhonchi. Gastrointestinal abdomen soft, non tender, bowel sounds audible, no guarding , no rigidity. Extremities no edema. Neuro non focal . Skin no rash General: healthy appearing, no acute distress and well developed Orientation/consciousness: patient oriented x3 HEENT Head: Yes normocephalic and Yes atraumatic Eyes Conjunctivae: conjunctivae normal Neck Neck: Yes normal visual inspection Chest Chest palpation & inspection: normal inspection of the chest Resp Effort & Inspection: normal respiratory effort Cardio Rate: regular rate GI Inspection: Yes normal to inspection Palpation (GI): Soft to palpation Scrotum: scrotum normal Neuro General: patient oriented x3 Psych Appearance: grossly normal Results Lab Results 06/21/24 09:27 06/21/24 15:20 Lab results: Chemistry 06/20/24 06/20/24 06/21/24 17:06 21:13 01:47 Sodium 140 138 139 Potassium 6.1 H* 5.8 H 5.8 H Carbon Dioxide 13 L 10 L* D 12 L BUN 36 H 36 H 34 H Creatinine 4.56 H* 4.26 H* 4.24 H* Calcium 8.0 L 7.6 L 7.7 L Phosphorus 4.6 H 06/21/24 06/21/24 09:27 15:20 Sodium 138 138 Potassium 5.2 H 5.2 H Carbon Dioxide 15 L 14 L BUN 32 H 29 H Creatinine 4.07 H* 4.06 H* Calcium 7.5 L 7.3 L Phosphorus Hematology 06/21/24 06/21/24 06/21/24 01:47 09:27 15:20 WBC 5.7 5.8 Cancelled Hgb 6.7 L* 7.7 L Cancelled Plt Count 179 168 Cancelled Urinalysis 06/21/24 03:35 Urine Color Yellow Urine Appearance Clear Urine pH 5.5 Ur Specific [place] 1.010 Urine Protein 30 (1+) H Urine Glucose (UA) Negative Urine Ketones Negative Urine Blood Moderate (2+) H Urine Nitrite Negative Ur Leukocyte Esterase Moderate (2+) H Urine RBC 6-10 H Urine WBC 11-20 H Ur Squamous Epith Cells 0-2 Hyaline Casts 0-2 Assessment and Plan (1) Macrocytic anemia with vitamin B12 deficiency: Status: Acute Plan 1. CKD 5: looks likel burnt out adv CKD based on prior SCr 3.9 in 2022 and small echogenic kidneys, suspect SCr is close to hois his bsl now 2. HyperK: d/t adv CKD and low HCO3 with xcellular shifting 3. Anemia: epo and Fe def playing a role REC: cont IV NaHCO3; check Fe stores, start EPO; check serum immunofixation Will follow w team Procedures Date of Service Date of Service: 06/21/24
[2024-06-21] MEDS: Pantoprazole Sodium 40 MG/10 ML VIAL IVPUSH (16:17)
[2024-06-21] MEDS: 0.9 % Sodium Chloride Flush 3 ML SYRINGE IVFLUSH (16:17)
[2024-06-21 17:13] LABS: Hematocrit 24.8 % (42.0-52.0); Hemoglobin 7.8 g/dl (14.0-18.0); Mean Corpuscular HGB Conc 31.5 g/dl (31.0-36.0); Mean Corpuscular Hemoglobin 32.4 pg (27.0-33.0); Mean Corpuscular Volume 102.9 fL (80.0-98.0); Mean Platelet Volume 10.3 fL (9.4-12.4); Platelet Count 176 X10*3/uL (160-400); Red Blood Count 2.41 X10*6/uL (4.60-5.80); White Blood Count 5.7 X10*3/uL (4.8-10.8)
--- NOTE | 2024-06-21 18:14 | PC.NURSE ---
Addendum entered by César Rendon RN 06/21/24 18:32: this nurse called pharmacy to request ordered meds and were still not on floor as of 1829 Original Note: epoetun alpha and sdium bicarb doses due @1630
[2024-06-21] MEDS: Sodium Bicarbonate 650 MG TABLET PO (22:20)
[2024-06-21] MEDS: Metoprolol Tartrate 25 MG TABLET PO (22:20)
[2024-06-22] VITALS: BP 118/66; PULSE 75; RESP 20; TEMP 36.2; O2SAT 98
[2024-06-22] MEDS: Acetaminophen 325 MG TABLET 650 MG PO ×2 (00:54→21:13)
[2024-06-22 03:54] VITALS: BP 140/72; PULSE 74; RESP 20; TEMP 36.4; O2SAT 98
[2024-06-22] MEDS: cefTRIAXone sodium 1 GM in 0.9 % Sodium Chloride 50 ML IV (05:19)
[2024-06-22] MEDS: Sodium Bicarbonate 8.4% 100 MEQ in Dextrose 5 % 900 ML IV (06:07)
[2024-06-22 06:40] LABS: Anion Gap 13 (12-20); Blood Urea Nitrogen 29 mg/dL (9-16); Calcium 7.3 mg/dL (8.4-10.2); Carbon Dioxide 20 mmol/L (22-29); Chloride 113 mmol/L (96-108); Creatinine Clr Calc Pharmacy 13.5; Estimated Glomerular Filt Rate 14; Glucose Random 98 mg/dL (60-115); Sodium 141 mmol/L (135-145)
[2024-06-22 06:59] LABS: Hematocrit 23.2 % (42.0-52.0); Hemoglobin 7.3 g/dl (14.0-18.0); Mean Corpuscular HGB Conc 31.5 g/dl (31.0-36.0); Mean Corpuscular Volume 101.8 fL (80.0-98.0); Platelet Count 169 X10*3/uL (160-400); Red Blood Count 2.28 X10*6/uL (4.60-5.80); Red Cell Distribution Width 17.2 % (11.0-16.0); White Blood Count 5.5 X10*3/uL (4.8-10.8)
[2024-06-22 07:15] VITALS: BP 127/69; PULSE 76; RESP 20; TEMP 36.7; O2SAT 98
[2024-06-22] MEDS: calcitrioL 0.25 MCG CAPSULE PO (08:10)
[2024-06-22] MEDS: Metoprolol Tartrate 25 MG TABLET PO ×2 (08:10→21:13)
[2024-06-22] MEDS: Sodium Bicarbonate 650 MG TABLET PO ×3 (08:10→21:13)
[2024-06-22] MEDS: 0.9 % Sodium Chloride Flush 3 ML SYRINGE IVFLUSH ×4 (08:11→21:13)
[2024-06-22] MEDS: Sodium Zirconium Cyclosilicate 10 GM POWD.PACK PO (08:11)
[2024-06-22 10:53] VITALS: BP 121/73; PULSE 69; RESP 18; TEMP 36.1; O2SAT 99
--- NOTE | 2024-06-22 14:11 | P.PNIM_ITS ---
Subjective Subjective Date of Service: 06/22/24 Interval History: Being followed for hematuria/ML, acidosis and hyperkalemia. Hematuria resolved, patient wishes to keep Valentine catheter since use [place] catheter at night and incontinent during day. Denies chest pain, no palpitations, no fever, no chills, no headache or dizziness. Review of Systems All other system reviewed and are negative Physical Exam 2 Vital Signs: Vital Signs: Last Vital Signs Temp 96.9 F 06/22/24 10:53 Pulse 69 06/22/24 10:53 Resp 18 06/22/24 10:53 BP 121/73 06/22/24 10:53 Pulse Ox 99 06/22/24 10:53 O2 Del Method Room Air 06/22/24 10:53 BMI result Body Mass Index 31.0 Const: Other: General awake alert x3, resting comfortably in no acute distress. Neck supple no JVD. CVS regular rate rhythm, Respiratory lungs clear to auscultation, no respiratory distress, no wheeze, no rhonchi. Gastrointestinal abdomen soft, non tender, bowel sounds audible, no guarding , no rigidity. Extremities no edema. Neuro non focal . Skin no rash Psych appropriate affect Valentine clear urine Objective Data Active Medications Acetaminophen (Acetaminophen 325 Mg Tablet) 650 mg PO Q6H PRN PRN Reason: Pain, Mild (Pain Scale 1-3), fever or headache Last Admin: 06/22/24 00:54 Dose: 650 mg Documented By: ROBERTO Calcitriol (Calcitriol 0.25 Mcg Capsule) 0.25 mcg PO DAILY [facility] Last Admin: 06/22/24 08:10 Dose: 0.25 mcg Documented By: AMADEO Calcium Carbonate (Calcium Carbonate 750 Mg Tab.Chew) 750 mg PO Q4H PRN PRN Reason: Heartburn Cyanocobalamin (Cyanocobalamin (Vitamin B-12) 1,000 Mcg Tablet) 1,000 mcg PO DAILY [facility] Ergocalciferol (Ergocalciferol (Vitamin D2) 1,250 Mcg Capsule) 1,250 mcg PO MO [facility] Ceftriaxone Sodium 1 gm/ (Sodium Chloride) 50 mls @ 100 mls/hr IV Q24H [facility] Last Infusion: 06/22/24 05:49 Dose: Infused Documented By: ROBERTO Ketotifen Fumarate (Ketotifen Fumarate 0.025% Oph 5 Ml Drpbtl) 1 drop EYE-BOTH BID [facility] Last Admin: 06/22/24 09:53 Dose: Not Given Documented By: AMADEO Non-Admin Reason: Med Not Available Magnesium Hydroxide (Milk Of Magnesia 30 Ml Oral.Susp) 30 ml PO DAILY PRN PRN Reason: Constipation Melatonin (Melatonin 3 Mg Tablet) 6 mg PO BEDTIME PRN PRN Reason: Insomnia Metoprolol Tartrate (Metoprolol Tartrate 25 Mg Tablet) 25 mg PO BID [facility]; Protocol Last Admin: 06/22/24 08:10 Dose: 25 mg Documented By: AMADEO Omeprazole (Omeprazole 20 Mg Capsule.Dr) 20 mg PO DAILY@0630 [facility] Ondansetron HCl (Ondansetron Hcl 4 Mg/2 Ml Vial) 4 mg IVPUSH Q8H PRN PRN Reason: Nausea and Vomiting Sodium Bicarbonate (Sodium Bicarbonate 650 Mg Tablet) 650 mg PO TID [facility] Sodium Chloride (0.9 % Sodium Chloride Flush 3 Ml Syringe) 3 ml IVFLUSH QSHIFT [facility] Last Admin: 06/22/24 08:11 Dose: 3 ml Documented By: AMADEO Sodium Zirconium Cyclosilicate (Sodium Zirconium Cyclosilicate 10 Gm Powd.Pack) 10 gm PO DAILY [facility] Last Admin: 06/22/24 08:11 Dose: 10 gm Documented By: AMADEO Labs 06/22/24 06:02 06/22/24 06:02 Labs: Laboratory Results - last 24 hr 06/21/24 06/21/24 06/22/24 15:20 16:55 06:02 MCV 102.9 H 101.8 H MCH 32.4 32.0 MCHC 31.5 31.5 RDW 18.0 H 17.2 H Plt Count Not Reportable 176 169 MPV 10.3 11.0 Absolute Nucleated RBC 0.000 0.000 Nucleated RBC % (auto) 0.0 0.0 Anion Gap 14 13 Estim Creat Clear Calc 13.4 13.5 Estimated GFR 14 14 Random Glucose 186 H 98 Calcium 7.3 L 7.3 L Microbiology Microbiology Results: Microbiology 06/21/24 Unknown Urine Culture - Preliminary Urine Catheterized - Valentine Catheter Gram negative lizandro Assessment and Plan (1) Macrocytic anemia with vitamin B12 deficiency: Status: Acute (2) Acute hyperkalemia: Status: Acute (3) ML (acute kidney injury): Status: Acute Plan 89-year-old man scheduled for circumcision due to lichen sclerosis, but noted to have potassium of 6.6, creatinine 4.50. Abdominal CT showed no obstruction, Patient has a history of hyperkalemia and uses Lokelma at home he also has a history of CKD Unfortunately, the procedure was canceled and patient admitted for further follow-up. 89 year old man admitted with ML, hyperkalemia and Anemia found in PACU. ML on ckd 5 with non Ag metabolic acidosis no obstruction on abd ct Creatinine trending down from 4.26 to 4.04, CPK 83 s/p iv sodabicarb drip , continue soda bicarb tablet increased to t.i.d. Continue low phosphorus and low potassium diet Valentine catheter seen by Dr Pool, he recommend outpatient follow-up with Nephrology, no acute intervention Hyperkalemia due to above Potassium improved from 5.8-5.0 ,continue Lokelma change dose to 5 mg Hematuria Resolved Follows with Dr. 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 Question due to infection UA positive for 4+ bacteria, moderate leukocytes and 11-20 WBC, urine culture grew Gram-negative rods no obstruction noted on CT scan Seen by Urology they recommend to DC Valentine catheter, plan to reschedule non urgent elective outpatient circumcision Patient wishes to continue Valentine catheter will discuss with Urology HTN stable BP, avoid hypotension, continue metoprolol , on amlodipine 10 mg daily will resume low-dose if noted to have elevated blood pressures Acute on chronic Anemia Due to hematuria/ history of intermittent black stools, no active GI bleed noted labs from [facility] 2022 show HH of 8.6/28.2, hemoglobin dropped to 6.7 improved to 7.7 after 1 unit of packed RBC but dropped to 7.3 today likely due to hematuria Iron studies not consistent with iron deficiency, low normal B12 and folate Seen by Gastroenterology they recommend outpatient follow-up, will transition to by mouth PPI Placed on by mouth B12 supplements/status post Procrit Hx of afib Continue beta-blockers not on anticoagulation, Daughter not 100% sure why he is not on AC, hold aspirin Tele monitor showed short runs of tachycardia likley svt Likely due to electrolyte abnormalities , consult cardiology Chronic hip pain Symptomatic treatment. DVT prophylaxis with SCD boots secondary to anemia Full code In my clinical judgment patient requires continued inpatient hospitalization for management of acute on chronic kidney disease/anemia/short run of tachycardia requiring frequent CBC monitoring, knee and expert consultation. Quality Stroke Does the patient have a stroke diagnosis?: No VTE Prior VTE?: No VTE Risk Level:: Medical - moderate - high VTE Device Contraindication: N/A - Device Ordered VTE Drug Contraindication: Treatment Not Indicated
[2024-06-22] MEDS: Cyanocobalamin (Vitamin B-12) 1,000 MCG TABLET 1000 MCG PO (14:32)
[2024-06-22 15:46] VITALS: BP 133/80; PULSE 72; RESP 18; TEMP 36.7; O2SAT 98
--- NOTE | 2024-06-22 16:37 | P.PNNP_ITS ---
Subjective Subjective Date of Service: 06/22/24 Interval history: Seen and examined, events noted Still with patel inplace overall feelng better Physical Exam 2 Vital Signs: Vital Signs: Last Vital Signs Temp 98.0 F 06/22/24 15:46 Pulse 72 06/22/24 15:46 Resp 18 06/22/24 15:46 BP 133/80 06/22/24 15:46 Pulse Ox 98 06/22/24 15:46 O2 Del Method Room Air 06/22/24 15:46 BMI result Body Mass Index 31.0 Const: Other: General awake alert x3, resting comfortably in no acute distress. Neck supple no JVD. CVS regular rate rhythm, Respiratory lungs clear to auscultation, no respiratory distress, no wheeze, no rhonchi. Gastrointestinal abdomen soft, non tender, bowel sounds audible, no guarding , no rigidity. Extremities no edema. Neuro non focal . Skin no rash General: healthy appearing, no acute distress and well developed O rientation/consciousness: patient oriented x3 HEENT: Head: Yes normocephalic and Yes atraumatic Eyes: Conjunctivae: conjunctivae normal Neck: Neck: Yes normal visual inspection Chest: Chest palpation & inspection: normal inspection of the chest Resp: Effort & Inspection: normal respiratory effort Cardio: Rate: regular rate GI: Inspection: Yes normal to inspection Palpation (GI): Soft to palpation : Scrotum: scrotum normal Neuro: General: patient oriented x3 Psych: Appearance: grossly normal Objective Data Labs 06/22/24 06:02 06/22/24 06:02 Labs: Laboratory Results - last 24 hr 06/21/24 06/22/24 16:55 06:02 WBC 5.7 5.5 RBC 2.41 L 2.28 L Hgb 7.8 L 7.3 L Hct 24.8 L 23.2 L MCV 102.9 H 101.8 H MCH 32.4 32.0 MCHC 31.5 31.5 RDW 18.0 H 17.2 H Plt Count 176 169 MPV 10.3 11.0 Absolute Nucleated RBC 0.000 0.000 Nucleated RBC % (auto) 0.0 0.0 Sodium 141 Potassium 5.0 Chloride 113 H Carbon Dioxide 20 L Anion Gap 13 BUN 29 H Creatinine 4.04 H* Estim Creat Clear Calc 13.5 Estimated GFR 14 Random Glucose 98 Calcium 7.3 L Microbiology Microbiology Results: Microbiology 06/21/24 Unknown Urine Catheterized - Patel Catheter Urine Culture - Preliminary Gram negative lizandro Procedures Date of Service Date of Service: 06/22/24 Assessment & Plan Assessment and plan (1) Macrocytic anemia with vitamin B12 deficiency: Status: Acute Plan 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 HyperK: resolved with correction of low HCO3; d/t adv CKD and low HCO3 with xcellular shifting 3. Anemia: epo and Fe def playing a role REC: switch IV NaHCO3 to po NaHCO3; check Fe stores, EPO as ordered I placed call to his daughter Carroll [phone] to update her Will follow w team Time Spent With Patient Time: Total time managing care of this patient today ____ minutes. Progress Note: Quality Stroke Does the patient have a stroke diagnosis?: No
[2024-06-22 20:00] VITALS: BP 166/74; PULSE 73; RESP 22; TEMP 36.9; O2SAT 99
[2024-06-23] VITALS: BP 117/68; PULSE 76; RESP 20; TEMP 36.3; O2SAT 98
[2024-06-23 03:32] VITALS: BP 130/63; PULSE 73; RESP 20; TEMP 36.2; O2SAT 99
[2024-06-23 06:03] LABS: Hematocrit 24.6 % (42.0-52.0); Hemoglobin 7.8 g/dl (14.0-18.0); Mean Corpuscular HGB Conc 31.7 g/dl (31.0-36.0); Mean Corpuscular Hemoglobin 32.9 pg (27.0-33.0); Mean Corpuscular Volume 103.8 fL (80.0-98.0); Mean Platelet Volume 10.9 fL (9.4-12.4); Platelet Count 166 X10*3/uL (160-400); Red Blood Count 2.37 X10*6/uL (4.60-5.80); Red Cell Distribution Width 17.2 % (11.0-16.0); White Blood Count 6.7 X10*3/uL (4.8-10.8)
[2024-06-23] MEDS: Omeprazole 20 MG CAPSULE.DR PO (06:05)
[2024-06-23 06:18] LABS: Anion Gap 14 (12-20); Blood Urea Nitrogen 30 mg/dL (9-16); Calcium 7.2 mg/dL (8.4-10.2); Carbon Dioxide 21 mmol/L (22-29); Chloride 110 mmol/L (96-108); Creatinine Clr Calc Pharmacy 14.2; Estimated Glomerular Filt Rate 15; Glucose Random 99 mg/dL (60-115); Potassium 4.5 mmol/L (3.3-5.1); Sodium 140 mmol/L (135-145)
[2024-06-23] MEDS: cefTRIAXone sodium 1 GM in 0.9 % Sodium Chloride 50 ML IV (06:23)
[2024-06-23 07:33] VITALS: BP 138/72; PULSE 84; RESP 18; TEMP 36.9; O2SAT 98
[2024-06-23] MEDS: 0.9 % Sodium Chloride Flush 3 ML SYRINGE IVFLUSH ×2 (09:24→15:02)
[2024-06-23] MEDS: Cyanocobalamin (Vitamin B-12) 1,000 MCG TABLET 1000 MCG PO (09:24)
[2024-06-23] MEDS: calcitrioL 0.25 MCG CAPSULE PO (09:24)
[2024-06-23] MEDS: Sodium Bicarbonate 650 MG TABLET PO ×3 (09:24→20:21)
[2024-06-23] MEDS: Sodium Zirconium Cyclosilicate 5 GM POWD.PACK PO (09:25)
[2024-06-23] MEDS: Metoprolol Tartrate 25 MG TABLET PO (09:25)
--- NOTE | 2024-06-23 10:25 | PM.CNCAR ---
History of Present Illness History of Present Illness Date of Service: 06/23/24 Requesting physician: Dorian Hadley Chief complaint: Hyperkalemia, ?h/o Afib Narrative: [age] year gentleman with CKD, hypertension and reported history of AFib. He is saying he was at [facility] when he was told that maybe had atrial fibrillation. Here there is no evidence of atrial fibrillation but telemetry has shown nonsustained ventricular tachycardia. He is denying any symptoms currently. He also has hematuria. He takes baby aspirin. He has history of TIA in the past. [facility] Past Medical History Medical History Neuralgia Microalbuminuria Osteoarthritis HTN (hypertension) Back pain Hx of testicular cancer Obesity Vitamin D deficiency Mixed hyperlipidemia Sensorineural hearing loss Solitary lung nodule Lesion of liver IBS (irritable bowel syndrome) Rib fractures Gynecomastia Sleep apnea Chronic pancreatitis Anemia Atrial fibrillation Stress incontinence, male Hyperlipidemia Recurrent UTI Dysuria Genital warts Prostate cancer Urgency incontinence Surgical History Surgical History H/O colonoscopy History of orchiectomy Hx of radical prostatectomy History of surgery Social History Social History Household Members: None Housing: House Patient Tobacco Use Status: Never used Tobacco service: Yes Meds Allergies Allergy/AdvReac Type Severity Reaction Status Date / Time No Known Allergies Allergy Verified 06/20/24 12:23 [No Known Allergies*] Active Medications: Current Medications Acetaminophen (Acetaminophen 325 Mg Tablet) 650 mg PO Q6H PRN PRN Reason: Pain, Mild (Pain Scale 1-3), fever or headache Last Admin: 06/22/24 21:13 Dose: 650 mg Calcitriol (Calcitriol 0.25 Mcg Capsule) 0.25 mcg PO DAILY [facility] Last Admin: 06/23/24 09:24 Dose: 0.25 mcg Calcium Carbonate (Calcium Carbonate 750 Mg Tab.Chew) 750 mg PO Q4H PRN PRN Reason: Heartburn Cyanocobalamin (Cyanocobalamin (Vitamin B-12) 1,000 Mcg Tablet) 1,000 mcg PO DAILY [facility] Last Admin: 06/23/24 09:24 Dose: 1,000 mcg Ergocalciferol (Ergocalciferol (Vitamin D2) 1,250 Mcg Capsule) 1,250 mcg PO MO [facility] Ceftriaxone Sodium 1 gm/ (Sodium Chloride) 50 mls @ 100 mls/hr IV Q24H [facility] Last Infusion: 06/23/24 06:53 Dose: Infused Ketotifen Fumarate (Ketotifen Fumarate 0.025% Oph 5 Ml Drpbtl) 1 drop EYE-BOTH BID [facility] Last Admin: 06/22/24 21:20 Dose: Not Given Magnesium Hydroxide (Milk Of Magnesia 30 Ml Oral.Susp) 30 ml PO DAILY PRN PRN Reason: Constipation Melatonin (Melatonin 3 Mg Tablet) 6 mg PO BEDTIME PRN PRN Reason: Insomnia Metoprolol Tartrate (Metoprolol Tartrate 25 Mg Tablet) 25 mg PO BID [facility]; Protocol Last Admin: 06/23/24 09:25 Dose: 25 mg Omeprazole (Omeprazole 20 Mg Capsule.Dr) 20 mg PO DAILY@0630 [facility] Last Admin: 06/23/24 06:05 Dose: 20 mg Ondansetron HCl (Ondansetron Hcl 4 Mg/2 Ml Vial) 4 mg IVPUSH Q8H PRN PRN Reason: Nausea and Vomiting Sodium Bicarbonate (Sodium Bicarbonate 650 Mg Tablet) 650 mg PO TID [facility] Last Admin: 06/23/24 09:24 Dose: 650 mg Sodium Chloride (0.9 % Sodium Chloride Flush 3 Ml Syringe) 3 ml IVFLUSH QSHIFT [facility] Last Admin: 06/23/24 09:24 Dose: 3 ml Sodium Zirconium Cyclosilicate (Sodium Zirconium Cyclosilicate 5 Gm Powd.Pack) 5 gm PO DAILY [facility] Last Admin: 06/23/24 09:25 Dose: 5 gm Home Medications ?Medication ?Instructions ?Recorded ?Confirmed ?Last Taken ?Type amlodipine 10 mg tablet 10 mg PO DAILY 06/16/24 06/20/24 06/20/24 History aspirin 81 mg tablet,delayed 81 mg PO DAILY 06/16/24 06/16/24 06/13/24 History release calcitriol 0.25 mcg capsule 0.25 mcg PO DAILY 06/16/24 06/20/24 06/20/24 History metoprolol tartrate 25 mg tablet 25 mg PO BID 06/16/24 06/20/24 06/20/24 History sodium bicarbonate 650 mg tablet 650 mg PO BID 06/16/24 06/20/24 06/20/24 History ergocalciferol (vitamin D2) 1,250 1,250 mcg PO MO 06/20/24 06/20/24 06/05/24 History mcg (50,000 unit) capsule (Vitamin D2) ketotifen fumarate 0.025 % (0.035 1 drp ophthalmic (eye) Q12H 06/20/24 06/20/24 Unknown History %) eye drops Physical Exam Vital Signs: Vital Signs: Last Vital Signs Temp 98.5 F 06/23/24 07:33 Pulse 84 06/23/24 07:33 Resp 18 06/23/24 07:33 BP 138/72 06/23/24 07:33 Pulse Ox 98 06/23/24 07:33 O2 Del Method Room Air 06/23/24 07:33 BMI result Body Mass Index 31.0 GENERAL APPEARANCE: in no acute distress, pleasant. NECK: no carotid bruit, no jugular venous distention. SKIN: no suspicious lesions, warm and dry. HEART: no murmurs, regular rate and rhythm. LUNGS: clear to auscultation bilaterally. ABDOMEN: soft, nontender. EXTREMITIES: no edema. PERIPHERAL PULSES: equal. NEUROLOGIC: No gross deficits, AAO X 3 Objective Labs and Meds 06/23/24 05:38 06/23/24 05:38 Lab results: Laboratory Results - last 24 hr 06/23/24 05:38 WBC 6.7 RBC 2.37 L Hgb 7.8 L Hct 24.6 L MCV 103.8 H MCH 32.9 MCHC 31.7 RDW 17.2 H Plt Count 166 MPV 10.9 Absolute Nucleated RBC 0.000 Nucleated RBC % (auto) 0.0 Sodium 140 Potassium 4.5 Chloride 110 H Carbon Dioxide 21 L Anion Gap 14 BUN 30 H Creatinine 3.83 H Estim Creat Clear Calc 14.2 Estimated GFR 15 Random Glucose 99 Calcium 7.2 L Assessment and Plan (1) NSVT (nonsustained ventricular tachycardia): Status: Acute Plan [age] year gentleman with advanced kidney issues presenting with hyperkalemia. He has runs of nonsustained VT on telemetry. Clinically stable. Titrate the metoprolol to 50 mg twice a day. Some concern about atrial fibrillation episode happening at [facility]. He is not on anticoagulation. In any case with hematuria he can not get anticoagulation currently. Get data from [facility]. If there is no clear evidence of atrial fibrillation then we will arrange cardiac event monitor as outpatient for further assessment. Thank you for allowing me to participate in the care of your patient. Please feel free to contact me if you have any questions. Procedures Date of Service Date of Service: 06/23/24
[2024-06-23 10:55] VITALS: BP 130/72; PULSE 71; RESP 18; TEMP 37.1; O2SAT 98
--- NOTE | 2024-06-23 14:14 | P.PNIM_ITS ---
Subjective Subjective Date of Service: 06/23/24 Interval History: Admitted to hospital due to hyperkalemia and acute on chronic kidney disease, elective circumcision was canceled. Noted to have short runs of nonsustained V-tach patient remained asymptomatic Hematuria resolved Denies chest pain, no shortness a breath, denies urinary symptoms, no burning, chronic urine incontinence wear depends during day and [place] catheter at night. Review of Systems All other symptoms reviewed and are negative. Physical Exam 2 Vital Signs: Vital Signs: Last Vital Signs Temp 98.7 F 06/23/24 10:55 Pulse 71 06/23/24 10:55 Resp 18 06/23/24 10:55 BP 130/72 06/23/24 10:55 Pulse Ox 98 06/23/24 10:55 O2 Del Method Room Air 06/23/24 10:55 BMI result Body Mass Index 31.0 Const: Other: General awake alert x3, resting comfortably in no acute distress. Neck supple no JVD. CVS regular rate rhythm, Respiratory lungs clear to auscultation, no respiratory distress, no wheeze, no rhonchi. Gastrointestinal abdomen soft, non tender, bowel sounds audible, no guarding , no rigidity. Extremities no edema. Neuro non focal . Skin no rash Psych appropriate affect Valentine clear urine Objective Data Active Medications Acetaminophen (Acetaminophen 325 Mg Tablet) 650 mg PO Q6H PRN PRN Reason: Pain, Mild (Pain Scale 1-3), fever or headache Last Admin: 06/22/24 21:13 Dose: 650 mg Documented By: ROBERTO Calcitriol (Calcitriol 0.25 Mcg Capsule) 0.25 mcg PO DAILY [facility] Last Admin: 06/23/24 09:24 Dose: 0.25 mcg Documented By: HERSON Calcium Carbonate (Calcium Carbonate 750 Mg Tab.Chew) 750 mg PO Q4H PRN PRN Reason: Heartburn Cyanocobalamin (Cyanocobalamin (Vitamin B-12) 1,000 Mcg Tablet) 1,000 mcg PO DAILY [facility] Last Admin: 06/23/24 09:24 Dose: 1,000 mcg Documented By: HERSON Ergocalciferol (Ergocalciferol (Vitamin D2) 1,250 Mcg Capsule) 1,250 mcg PO MO [facility] Ceftriaxone Sodium 1 gm/ (Sodium Chloride) 50 mls @ 100 mls/hr IV Q24H [facility] Last Infusion: 06/23/24 06:53 Dose: Infused Documented By: ROBERTO Ketotifen Fumarate (Ketotifen Fumarate 0.025% Oph 5 Ml Drpbtl) 1 drop EYE-BOTH BID [facility] Last Admin: 06/23/24 10:47 Dose: Not Given Documented By: HERSON Non-Admin Reason: Patient Refused Magnesium Hydroxide (Milk Of Magnesia 30 Ml Oral.Susp) 30 ml PO DAILY PRN PRN Reason: Constipation Melatonin (Melatonin 3 Mg Tablet) 6 mg PO BEDTIME PRN PRN Reason: Insomnia Metoprolol Tartrate (Metoprolol Tartrate 50 Mg Tablet) 50 mg PO BID [facility]; Protocol Omeprazole (Omeprazole 20 Mg Capsule.Dr) 20 mg PO DAILY@0630 [facility] Last Admin: 06/23/24 06:05 Dose: 20 mg Documented By: ROBERTO Ondansetron HCl (Ondansetron Hcl 4 Mg/2 Ml Vial) 4 mg IVPUSH Q8H PRN PRN Reason: Nausea and Vomiting Sodium Bicarbonate (Sodium Bicarbonate 650 Mg Tablet) 650 mg PO TID [facility] Last Admin: 06/23/24 09:24 Dose: 650 mg Documented By: HERSON Sodium Chloride (0.9 % Sodium Chloride Flush 3 Ml Syringe) 3 ml IVFLUSH QSHIFT [facility] Last Admin: 06/23/24 09:24 Dose: 3 ml Documented By: HERSON Sodium Zirconium Cyclosilicate (Sodium Zirconium Cyclosilicate 5 Gm Powd.Pack) 5 gm PO DAILY [facility] Last Admin: 06/23/24 09:25 Dose: 5 gm Documented By: HERSON Labs 06/23/24 05:38 06/23/24 05:38 Labs: Laboratory Results - last 24 hr 06/23/24 05:38 MCV 103.8 H MCH 32.9 MCHC 31.7 RDW 17.2 H Plt Count 166 MPV 10.9 Absolute Nucleated RBC 0.000 Nucleated RBC % (auto) 0.0 Anion Gap 14 Estim Creat Clear Calc 14.2 Estimated GFR 15 Random Glucose 99 Calcium 7.2 L Microbiology Microbiology Results: Microbiology 06/21/24 Unknown Urine Culture - Preliminary Urine Catheterized - Valentine Catheter Gram negative lizandro Assessment and Plan (1) NSVT (nonsustained ventricular tachycardia): Status: Acute (2) Macrocytic anemia with vitamin B12 deficiency: Status: Acute (3) Acute hyperkalemia: Status: Acute (4) ML (acute kidney injury): Status: Acute Plan 89-year-old man scheduled for circumcision due to lichen sclerosis, but noted to have potassium of 6.6, creatinine 4.50. Abdominal CT showed no obstruction, Patient has a history of hyperkalemia and uses Lokelma at home he also has a history of CKD Unfortunately, the procedure was canceled and patient admitted for further follow-up. 89 year old man admitted with ML, hyperkalemia and Anemia found in PACU. ML on ckd 5 with non Ag metabolic acidosis no obstruction on abd ct Creatinine trending down from 4.26 to 3.83, CPK 83 s/p iv sodabicarb drip , continue soda bicarb tablet increased to t.i.d. Continue low phosphorus and low potassium diet Valentine catheter seen by Dr Pool, he recommend outpatient follow-up with Nephrology, no acute intervention, seems to be at baseline creatinine Hyperkalemia due to above Potassium improved from 5.8-4.5 , DC Lokelma Hematuria Resolved Follows with Dr. Bella, history of urinary incontinence secondary to radical prostatectomy with external beam radiation Circumcision recommended due to lichen sclerosis on foreskin Baseline patient has urinary incontinence, use diapers during the day and [place] catheter at night. Question due to infection UA positive for 4+ bacteria, moderate leukocytes and 11-20 WBC, urine culture grew Gram-negative rods, follow final sensitivities no obstruction noted on CT scan Seen by Urology they recommend to DC Valentine catheter, plan to reschedule non urgent elective outpatient circumcision Will DC Valentine catheter UTI Urine culture grew Gram-negative rods continue IV ceftriaxone started on 06/21 follow final sensitivities and treat for 10 days of abx HTN stable BP, avoid hypotension, continue metoprolol , dose increased to metoprolol 50 mg b.i.d., home dose 25 mg b.i.d., will DC amlodipine 10 mg Runs of nonsustained V-tach Seen by Cardiology they recommend to increase dose of metoprolol to 50 mg b.i.d. Monitor on telemetry Acute on chronic Anemia Due to hematuria/ history of intermittent black stools, no active GI bleed noted labs from [facility] 2022 show HH of 8.6/28.2, hemoglobin dropped to 6.7 improved to 7.7 after 1 unit of packed RBC Iron studies not consistent with iron deficiency, low normal B12 256 and folate 5.6 Seen by Gastroenterology they recommend outpatient follow-up, will transition to by mouth PPI Placed on by mouth B12 supplements/status post Procrit Hx of afib Continue beta-blockers not on anticoagulation, Daughter not 100% sure why he is not on AC, hold aspirin due to hematuria ,will resume asa on dc Cardio recommend to obtain old records from [facility] regarding documentation of diagnosis of AFib. Request sent Outpatient follow-up with Cardiology for event recorder. Chronic hip pain Symptomatic treatment. DVT prophylaxis with SCD boots secondary to anemia Full code In my clinical judgment patient requires continued inpatient hospitalization for management of acute on chronic kidney disease/anemia/short run of tachycardia requiring frequent CBC monitoring, knee and expert consultation. Quality Stroke Does the patient have a stroke diagnosis?: No VTE Prior VTE?: No VTE Risk Level:: Medical - moderate - high VTE Device Contraindication: N/A - Device Ordered VTE Drug Contraindication: Treatment Not Indicated
[2024-06-23 15:20] VITALS: BP 141/76; PULSE 82; RESP 20; TEMP 36.9; O2SAT 98
--- NOTE | 2024-06-23 15:40 | MHC.CM.PN ---
EMR reviewed and per MD rounds, pt is not medically cleared for discharge due to management of acute on CKD and anemia.
[2024-06-23 19:44] VITALS: BP 133/66; PULSE 91; RESP 22; TEMP 36.7; O2SAT 92
[2024-06-23 19:48] LABS: IgA 265 mg/dL (70-320); IgG 975 mg/dL (600-1540); IgM 16 mg/dL (50-300)
[2024-06-23] MEDS: Metoprolol Tartrate 50 MG TABLET PO (20:21)
[2024-06-24] VITALS: BP 132/62; PULSE 74; RESP 18; TEMP 36.8; O2SAT 98
[2024-06-24 04:00] VITALS: BP 100/49; PULSE 74; RESP 18; TEMP 37.1; O2SAT 100
[2024-06-24] MEDS: Omeprazole 20 MG CAPSULE.DR PO (06:17)
[2024-06-24] MEDS: Acetaminophen 325 MG TABLET 650 MG PO (06:17)
[2024-06-24] MEDS: cefTRIAXone sodium 1 GM in 0.9 % Sodium Chloride 50 ML IV (06:18)
[2024-06-24 07:33] VITALS: BP 130/71; PULSE 70; RESP 18; TEMP 36.5; O2SAT 98
[2024-06-24] MEDS: Cyanocobalamin (Vitamin B-12) 1,000 MCG TABLET 1000 MCG PO (08:46)
[2024-06-24] MEDS: Metoprolol Tartrate 50 MG TABLET PO (08:46)
[2024-06-24] MEDS: 0.9 % Sodium Chloride Flush 3 ML SYRINGE IVFLUSH (08:47)
[2024-06-24] MEDS: Sodium Bicarbonate 650 MG TABLET PO (08:47)
[2024-06-24] MEDS: calcitrioL 0.25 MCG CAPSULE PO (08:47)
[2024-06-24 09:26] LABS: Hematocrit 26.5 % (42.0-52.0); Hemoglobin 8.4 g/dl (14.0-18.0); Mean Corpuscular HGB Conc 31.7 g/dl (31.0-36.0); Mean Corpuscular Hemoglobin 33.2 pg (27.0-33.0); Mean Corpuscular Volume 104.7 fL (80.0-98.0); Mean Platelet Volume 11.3 fL (9.4-12.4); Platelet Count 169 X10*3/uL (160-400); Red Blood Count 2.53 X10*6/uL (4.60-5.80); Red Cell Distribution Width 17.1 % (11.0-16.0); White Blood Count 6.7 X10*3/uL (4.8-10.8)
[2024-06-24 09:48] LABS: Anion Gap 15 (12-20); Blood Urea Nitrogen 36 mg/dL (9-16); Calcium 7.3 mg/dL (8.4-10.2); Carbon Dioxide 16 mmol/L (22-29); Chloride 111 mmol/L (96-108); Creatinine Clr Calc Pharmacy 12.4; Estimated Glomerular Filt Rate 13; Glucose Random 170 mg/dL (60-115); Potassium 4.3 mmol/L (3.3-5.1); Sodium 138 mmol/L (135-145)
--- NOTE | 2024-06-24 10:42 | P.DS_ITS ---
DS: Providers Provider Date of Service: 06/24/24 Date of admission: 06/20/24 16:37 Primary care physician: Keyla Waters MD Consults: 06/20/24 16:42 Consult to Nephrology Routine Consulting Provider: Juan Pool Reason for consultation: ML on CKD, hyperkalemia 06/21/24 03:12 Consult to Gastroenterology Routine Consulting Provider: Philippe Ravi Reason for consultation: Anemia Has provider been notified: No 06/21/24 05:23 Consult to Urology Routine Consulting Provider: [facility] Reason for consultation: ML, anemia, hematuria Has provider been notified: No 06/22/24 14:10 Consult to Cardiology Routine Consulting Provider: [facility] Reason for consultation: short runs of tachycardia Has provider been notified: No DS: Diagnosis Discharge Diagnosis (1) NSVT (nonsustained ventricular tachycardia): Status: Acute (2) Macrocytic anemia with vitamin B12 deficiency: Status: Acute (3) Acute hyperkalemia: Status: Acute (4) ML (acute kidney injury): Status: Acute DS: Summary Hospital Course Hospital Course: 89-year-old man scheduled for circumcision due to lichen Sclerosis, but noted to have potassium of 6.6, creatinine 4.50. Abdominal CT showed no obstruction, Patient has a history of hyperkalemia and uses Lokelma at home he also has a history of CKD Unfortunately, the procedure was canceled and patient admitted for further management ML on ckd 5 with nonAG metabolic acidosis -no obstruction on abd ct -Creatine is within baseline -Nephro (Yrn) recommends outpt follow up -NAG metabolic acidosis was treated with bicab Hyperkalemia d/t above, resolved with Lokelma Hemaruria has Resolved. The patient follows with Dr. Velazquez for a history of urinary incontinence secondary to a radical prostatectomy with external beam radiation. Circumcision has been recommended due to lichen sclerosis on the foreskin. The patient has baseline urinary incontinence, uses diapers during the day, and a [place] catheter at night. There was a concern for infection, as a urinalysis was positive for 4+ bacteria, moderate leukocytes, and 11-20 WBC. Urine culture grew Gram-negative rods (Klebsiella), and a CT scan showed no obstruction. Circumcision will be rescheduled after completing antibiobics for UTI UTI--d/t Klebsiella aerogenes, sensitive to Ceftriaxone, change to Ceftin and treat for 10 days HTN stable BP, avoid hypotension, continue metoprolol , dose increased to metoprolol 50 mg b.i.d., home dose 25 mg b.i.d. Amlodipine stopped Runs of nonsustained V-tach Seen by Cardiology they recommend to increase dose of metoprolol to 50 mg b.i.d. No furher episodes Acute on chronic Anemia Due to hematuria/ history of intermittent black stools, no active GI bleed noted labs from [facility] 2022 show HH of 8.6/28.2, hemoglobin dropped to 6.7 improved to 7.7 after 1 unit of packed RBC Iron studies not consistent with iron deficiency, low normal B12 256 and folate 5.6 Seen by Gastroenterology they recommend outpatient follow-up, will transition to by mouth PPI Placed on by mouth B12 supplements/status post Procrit Hx of afib Continue beta-blockers not on anticoagulation, Daughter not 100% sure why he is not on AC, hold aspirin due to hematuria ,will resume asa on dc Cardio recommend to obtain old records from [facility] regarding documentation of diagnosis of AFib. Request sent Outpatient follow-up with Cardiology for event recorder. Chronic hip pain Symptomatic treatment. Time Attestation Discharge Coordination Time (in mins): 45 Quality: Safe Use of Opioids Does Pt have an Active Cancer Diagnosis on the Problem List?: No Quality: Stroke Does the patient have a stroke diagnosis?: No Physical Exam Vital Signs: Vital Signs: Last Vital Signs Temp 97.7 F 06/24/24 07:33 Pulse 70 06/24/24 07:33 Resp 18 06/24/24 07:33 BP 130/71 06/24/24 07:33 Pulse Ox 98 06/24/24 07:33 O2 Del Method Room Air 06/24/24 07:33 BMI result Body Mass Index 31.0 DS: Data Data Completed and Pending Labs on day of discharge: Laboratory Results - last 24 hr 06/21/24 06/24/24 16:55 09:04 WBC 6.7 RBC 2.53 L Hgb 8.4 L Hct 26.5 L MCV 104.7 H MCH 33.2 H MCHC 31.7 RDW 17.1 H Plt Count 169 MPV 11.3 Absolute Nucleated RBC 0.000 Nucleated RBC % (auto) 0.0 Sodium 138 Potassium 4.3 Chloride 111 H Carbon Dioxide 16 L Anion Gap 15 BUN 36 H Creatinine 4.38 H* Estim Creat Clear Calc 12.4 Estimated GFR 13 Random Glucose 170 H Calcium 7.3 L IgG Total 975 IgA Total 265 IgM 16 L VALENTINE Interpretation SEE NOTE Discharge Plan Discharge Anticipated Discharge Date/Time: 06/24/24 10:43 Patient Disposition: Home Health Service Discharge Diagnosis: Hyperkalemia, ML Referrals: Andrea VERAS [Outside] - 1 Week Anshul Bella MD [Physician] - 1 Week (For circumcision) Keyla Waters MD [Primary Care Provider] - 1 Week Discharge Medications: New metoprolol tartrate 50 mg Tablet 50 mg PO BID Qty: 120 0RF Protocol: Hold for SBP/HR < HOLD for SBP < : 90 HOLD for HR < : 60 sodium bicarbonate 650 mg Tablet 650 mg PO TID Qty: 90 0RF cefuroxime axetil 250 mg tablet 250 mg PO BID 7 Days Qty: 14 0RF Continued (DME) drainage bag Misc See Rx Instructions .ROUTE .MEDSUPPLY Qty: 1 12RF Rx Instructions: As directed (DME) Urinary Leg Bag Misc See Rx Instructions .ROUTE .MEDSUPPLY Qty: 2 12RF Rx Instructions: As directed calcitriol 0.25 mcg Capsule 0.25 mcg PO DAILY aspirin 81 mg Tablet,Delayed Release (Dr/Ec) 81 mg PO DAILY ketotifen fumarate 0.025 % (0.035 %) Drops 1 drp OPHTHALMIC (EYE) Q12H ergocalciferol (vitamin D2) [Vitamin D2] 1,250 mcg (50,000 unit) Capsule 1,250 mcg PO MO Discontinued sodium bicarbonate 650 mg Tablet 650 mg PO BID amlodipine 10 mg Tablet 10 mg PO DAILY metoprolol tartrate 25 mg Tablet 25 mg PO BID Discharge Orders: Discharge Order (Routine); Ordered 06/24/24 Ordered By: Sekou Patino Diet: Advance to usual diet Activity on Discharge: As tolerated Stand Alone Forms: Patient Portal Discharge page Print Language: Swiss Care Plan Goals: recovery from hyperkalemia, UIT, and ultimale circumcision for lichen sclreosis Health Concerns: lichen sclerosis of penis hyperkalemia renal failure uti Plan of Treatment: take ceftin for UTI follow up with Dr. Bella for circumcision to be rescheduled after you finish taking antibiotics Metoprolol dose has been increased to 50 mg twice daily stop taking Norvasc Assessment: see aove Patient Instructions: Cefuroxime (By mouth), Metoprolol (By mouth), Sodium Bicarbonate (By mouth) Discharge Date/Time: 06/24/24 14:31
[2024-06-24 11:37] VITALS: BP 148/70; PULSE 60; RESP 18; TEMP 36.7; O2SAT 99
--- NOTE | 2024-06-24 13:57 | P.F2F_ITS ---
Service Date Service Date: 06/24/24 Encounter Date of encounter: 06/24/24 Reasons for Services Signs and symptoms assessed: hperkalemia, uti, weakness Reason for long term: medication management and teach disease management Homebound: Leaving the home is medically contraindicated at this time without the asist of a device and/or another person due th the listed conditions above and below. Reason homebound: weakness related to hospital stay and unable to drive Homebound supporting statement: weakness from hospitalization, unable to drive and therefore needs the assistance of another person Certification: Based on the above findings, I certify that this patient is confined to the home and needs intermittent long term care, physical therapy and/or speech therapy, or continues to need occupational therapy. The patient is under my care, and I have initiated the establishment of the plan of care. The patient will be followed by a physician who will periodically review the plan of care. Time Spent With Patient Time: Total time managing care of this patient today ____ minutes.
--- NOTE | 2024-06-24 14:01 | MHC.CM.PN ---
Patient has been medically cleared for dc to home today, with services. A referral was made to [facility], to use Patient's Medicare for VNA. [facility] is aware of today's dc.
== END 2024-06-24 14:31 | disposition home health service (06) | DRG 683 ==
LOC: HO.ED 16:30 → HO.EDOVER 16:52 → HO.IMC 06-21 15:11
PROVIDERS: Hospitalist; Internal Medicine; Internal Medicine Nephrology; Admitting Provider Nurse Practitioner Acute Care; Emergency Provider Emergency Medicine; PCP Internal Medicine; Referring Provider Internal Medicine; Visit Provider Internal Medicine
DX: N17.9 Acute kidney failure, unspecified (principal); E87.20 Acidosis, unspecified; I47.20 Ventricular tachycardia, unspecified; N39.0 Urinary tract infection, site not specified; E86.0 Dehydration; N18.5 Chronic kidney disease, stage 5; E87.5 Hyperkalemia; N48.0 Leukoplakia of penis; I48.91 Unspecified atrial fibrillation; D53.9 Nutritional anemia, unspecified; R31.9 Hematuria, unspecified; M16.12 Unilateral primary osteoarthritis, left hip; N39.41 Urge incontinence; Z63.4 Disappearance and death of family member; I12.9 Hypertensive chronic kidney disease with stage 1 through stage 4 chronic kidney disease, or unspecified chronic kidney disease; D63.1 Anemia in chronic kidney disease; B96.1 Klebsiella pneumoniae [K. pneumoniae] as the cause of diseases classified elsewhere; Z85.46 Personal history of malignant neoplasm of prostate; Z79.899 Other long term (current) drug therapy
CPT/HCPCS: 36415; 71045; 74176; 80048; 80053; 81001; 82550; 82607; 82728; 82746; 82784; 82803; 83540; 83735; 84100; 85027; 85045; 86334; 86850; 86900; 86901; 86923; 87086; 87088; 87186; 93005; 99285; C1758; J0696; J0885; J2470; J7120; P9016

== ENCOUNTER → 2024-06-20 16:37 | Outpatient (BNV) | payer OTHER, MEDICARE, SELFPAY | PROVIDERS: Admitting Provider Nurse Practitioner Acute Care; Emergency Provider Emergency Medicine; PCP Internal Medicine; Visit Provider Internal Medicine Cardiovascular Disease | DX: I47.29 Other ventricular tachycardia (principal) | CPT/HCPCS: 99222 ==

== ENCOUNTER → 2024-06-20 16:37 | Outpatient (BNV) | payer OTHER, MEDICARE, SELFPAY | PROVIDERS: Admitting Provider Nurse Practitioner Acute Care; Emergency Provider Emergency Medicine; PCP Internal Medicine; Visit Provider Internal Medicine | DX: I47.29 Other ventricular tachycardia (principal) | CPT/HCPCS: 99223; 99232; 99233; 99239; 99499; G0180 ==

== ENCOUNTER → 2024-06-20 16:37 | Outpatient (BNV) | payer OTHER, MEDICARE, SELFPAY | PROVIDERS: Admitting Provider Nurse Practitioner Acute Care; Emergency Provider Emergency Medicine; PCP Internal Medicine; Visit Provider Urology | DX: N17.9 Acute kidney failure, unspecified (principal); N48.0 Leukoplakia of penis; C61 Malignant neoplasm of prostate; N39.41 Urge incontinence | CPT/HCPCS: 99222 ==

== ENCOUNTER → 2024-06-20 16:37 | Outpatient (BNV) | payer OTHER, MEDICARE, SELFPAY | PROVIDERS: Admitting Provider Nurse Practitioner Acute Care; Emergency Provider Emergency Medicine; PCP Internal Medicine; Visit Provider Internal Medicine Gastroenterology | DX: D51.8 Other vitamin B12 deficiency anemias (principal) | CPT/HCPCS: 99223 ==